=== PATIENT | male | born 1975 | race Asian ===

== ENCOUNTER 2023-03-22 00:21 | Inpatient (IN) | payer OTHER ==
[2023-03-22] MEDS ORDERED: LABETALOL 5 MG/ML VIAL MDV IVP STA (00:58)
[2023-03-22] MEDS ORDERED: SODIUM CHLORIDE 0.9% 1,000 ML IV STA ×2 (00:58→03:00)
--- NOTE | 2023-03-22 00:59 | ED ---
SOB HPI - General Chief Complaint: Shortness of Breath Stated Complaint: SOB Time Seen by Provider: 03/22/23 00:35 Source: patient, EMS, RN notes reviewed, old records reviewed Mode of arrival: EMS Limitations: no limitations - History of Present Illness Initial Comments: This is a 47-year-old male who presents with history of smoking crack cocaine in presenting from [facility] for severe shortness of breath diffuse body edema leg edema significant shortness of breath severely elevated blood pressure severely elevated heart rate. Patient's main complaint is shortness of breath MD Complaint: shortness of breath, "asthma attack", anxiety -: days(s) Severity: severe Severity scale (1-10): 8 Consistency: constant Improves With: rest Worsens With: exertion Known History Of: asthma (Does have history of smoking), IVDU Context: anxiety, recent illness Associated Symptoms: cough, sputum production Treatments Prior to Arrival: none - Related Data Home Medications Medication Instructions Recorded Confirmed Albuterol Nebulized [Ventolin 2.5 mg INHALATION RT-Q6H PRN 03/22/23 03/22/23 Nebulized] Albuterol Sulfate [Albuterol 1 - 2 puff PO RT-Q4H PRN 03/22/23 03/22/23 Sulfate Hfa] Previous Rx's Medication Instructions Recorded Aspirin 81 mg PO DAILY #30 tab 03/28/23 Atorvastatin [Lipitor] 80 mg PO HS #30 tab 03/28/23 Furosemide [Lasix] 20 mg PO BID@0900,1600 #60 tab 03/28/23 Nitroglycerin Sl Tabs [Nitrostat] 0.4 mg SUBLINGUAL Q5M PRN #30 tab 03/28/23 Spironolactone [Aldactone] 25 mg PO DAILY #30 tab 03/28/23 carvediloL [Coreg] 25 mg PO BID #60 tablet 03/28/23 cloNIDine 0.1 MG/24HR PATCH 1 patch TRANSDERM Q7D #4 patch 03/28/23 [Catapres-TTS] lisinopriL [Zestril] 20 mg PO BID #60 tab 03/28/23 Allergies Allergy/AdvReac Type Severity Reaction Status Date / Time No Known Allergies Allergy Verified 03/22/23 07:51 Review of Systems ROS Statement: Those systems with pertinent positive or pertinent negative responses have been documented in the HPI. ROS Other: All systems not noted in ROS Statement are negative. Past Medical History Past Medical History: Hypertension History of Any Multi-Drug Resistant Organisms: None Reported Past Surgical History: No Surgical Hx Reported Past Psychological History: No Psychological Hx Reported Smoking Status: Current some day smoker Past Alcohol Use History: None Reported Past Drug Use History: IV Drug Use - Past Family History Mother Family Medical History: Diabetes Mellitus, Hypertension Father History Unknown: Yes General Exam Limitations: no limitations General appearance: alert, anxious, in distress Head exam: Present: atraumatic, normocephalic, normal inspection Eye exam: Present: normal appearance, PERRL, EOMI. Absent: scleral icterus, conjunctival injection, periorbital swelling ENT exam: Present: normal exam, mucous membranes moist Neck exam: Present: normal inspection. Absent: tenderness, meningismus, lymphadenopathy Respiratory exam: Present: respiratory distress, accessory muscle use, decreased breath sounds, prolonged expiratory. Absent: wheezes, rales, rhonchi, stridor Cardiovascular Exam: Present: normal rhythm, tachycardia, normal heart sounds. Absent: systolic murmur, diastolic murmur, rubs, gallop, clicks GI/Abdominal exam: Present: soft, normal bowel sounds. Absent: distended, tenderness, guarding, rebound, rigid Extremities exam: Present: normal inspection, full ROM, normal capillary refill. Absent: tenderness, pedal edema, joint swelling, calf tenderness Back exam: Present: normal inspection Neurological exam: Present: alert, oriented X3, CN II-XII intact Psychiatric exam: Present: normal affect, normal mood Skin exam: Present: warm, dry, intact, normal color. Absent: rash Course Vital Signs 03/22/23 03/22/23 03/22/23 00:24 00:57 00:59 Temperature 98.7 F Pulse Rate 115 H 108 H Respiratory 28 H 18 Rate Blood Pressure 186/156 186/137 O2 Sat by Pulse 96 88 L 98 Oximetry Fraction of Inspired Oxygen (FIO2) 03/22/23 03/22/23 03/22/23 01:50 02:05 04:44 Temperature Pulse Rate 84 86 Respiratory 16 26 H Rate Blood Pressure 170/121 158/114 O2 Sat by Pulse 99 99 Oximetry Fraction of Inspired Oxygen (FIO2) 03/22/23 03/22/23 03/22/23 04:56 05:34 06:35 Temperature Pulse Rate 87 94 Respiratory 18 20 Rate Blood Pressure 155/113 O2 Sat by Pulse 97 93 L Oximetry Fraction of Inspired Oxygen (FIO2) 03/22/23 03/22/23 03/22/23 06:58 07:15 07:30 Temperature 97.6 F Pulse Rate 91 93 Respiratory 16 20 Rate Blood Pressure 148/113 115/90 O2 Sat by Pulse 94 L 100 Oximetry Fraction of 50 Inspired Oxygen (FIO2) 03/22/23 03/22/23 03/22/23 07:45 08:45 10:00 Temperature Pulse Rate 90 92 Respiratory 24 22 Rate Blood Pressure 145/109 150/123 O2 Sat by Pulse 96 94 L 99 Oximetry Fraction of Inspired Oxygen (FIO2) 03/22/23 03/22/23 12:06 12:14 Temperature 98.5 F 98.2 F Pulse Rate 89 99 Respiratory 22 18 Rate Blood Pressure 150/115 154/115 O2 Sat by Pulse 99 95 Oximetry Fraction of Inspired Oxygen (FIO2) - Reevaluation(s) Reevaluation #1: 03/22/23 04:44 Medical records are reviewed Reevaluation #2: 03/22/23 04:44 Patient improvement with blood pressure control and symptomatic therapy Reevaluation #3: 03/22/23 04:45 Patient informed of results and questions answered Reevaluation #4: 03/22/23 04:45 Was pt. sent in by a medical professional or institution (, PA, BUSINESS TRANSFORMATION ANALYST, urgent care, hospital, or [facility]...) When possible be specific @ -no Did you speak to anyone other than the patient for history (EMS, parent, family, police, friend...)? What history was obtained from this source @ -no Did you review nursing and triage notes (agree or disagree)? Why? @ -agree Are old charts reviewed (outside hosp., previous admission, EMS record, old EKG, old radiological studies, urgent care reports/EKG's, [facility] records)? Report findings @ -yes Differential Diagnosis (chest pain, altered mental status, abdominal pain women, abdominal pain men, vaginal bleeding, weakness, fever, dyspnea, syncope, headache, dizziness, GI bleed, back pain, seizure, CVA, palpatations, mental health, musculoskeletal)? @ -prior EKG interpreted by me (3pts min.). @ -yes X-rays interpreted by me (1pt min.). @ -yes acute pulmonary edema CT interpreted by me (1pt min.). @ -Yes acute pulmonary edema and anasarca U/S interpreted by me (1pt. min.). @ -no What testing was considered but not performed or refused? (CT, X-rays, U/S, labs)? Why? @ -none What meds were considered but not given or refused? Why? @ -none Did you discuss the management of the patient with other professionals (professionals i.e. , PA, BUSINESS TRANSFORMATION ANALYST, lab, RT, psych nurse, psychosocial rehabilitation counselor, manager hris, teacher, medical corps officer, leather case finisher)? Give summary @ -no Was smoking cessation discussed for >3mins.? @ -no Was critical care preformed (if so, how long)? @ -yes31 Were there social determinants of health that impacted care today? How? (Homelessness, low income, unemployed, alcoholism, drug addiction, transportation, low edu. Level, literacy, decrease access to med. care, detention, rehab)? @ -none Was there de-escalation of care discussed even if they declined (Discuss DNR or withdrawal of care, Hospice)? DNR status @ -no What co-morbidities impacted this encounter? (DM, HTN, Smoking, COPD, CAD, Cancer, CVA, ARF, Chemo, Hep., AIDS, mental health diagnosis, sleep apnea, morbid obesity)? @ -none Was patient admitted / discharged? Hospital course, mention meds given and route, prescriptions, significant lab abnormalities, going to OR and other pertinent info. @ - 47 male to the emergency room in today for evaluation with history of smoking crack cocaine coming in for evaluation severely elevated blood pressure severely elevated heart rate with shortness of breath and hypoxia. Patient has diffuse anasarca with suggestions of CHF ER noncardiogenic versus heart failure and pulmonary edema, patient does have respiratory failure on BiPAP Admitted Undiagnosed new problem with uncertain prognosis? @ -no Drug Therapy requiring intensive monitoring for toxicity (Heparin, Nitro, Insulin, Cardizem)? @ -no Were any procedures done? @ -no Diagnosis/symptom? @ -CHF, COPD, pulmonary edema, drug abuse, respiratory failure Acute, or Chronic, or Acute on Chronic? @ -Acute Uncomplicated (without systemic symptoms) or Complicated (systemic symptoms)? @ -Complicated Side effects of treatment? @ -no Exacerbation, Progression, or Severe Exacerbation? @ -exacerbation Poses a threat to life or bodily function? How? (Chest pain, [place], [place], pneumonia, PE, COPD, DKA, ARF, appy, cholecystitis, CVA, Diverticulitis, Homicidal, Suicidal, threat to staff... and all critical care pts) @ -yes with respiratory insufficiency Reevaluation #5: 03/22/23 04:45 Differential Dyspnea: Coronary syndrome, arrhythmia, tamponade, asthma, COPD, pulmonary embolism, pneumonia, pneumothorax, pulmonary effusion, anaphylaxis, diabetic ketoacidosis, flailed chest, pulmonary contusion, diaphragmatic rupture, anemia, neuromuscular, this is not meant to be an all-inclusive list. - Consultations Consultation #1: Pao who agrees to admit this patient Medical Decision Making - Medical Decision Making 47 male to the emergency room in today for evaluation with history of smoking crack cocaine coming in for evaluation severely elevated blood pressure severely elevated heart rate with shortness of breath and hypoxia. Patient has diffuse anasarca with suggestions of CHF ER noncardiogenic versus heart failure and pulmonary edema, patient does have respiratory failure on BiPAP - Lab Data Result diagrams: 03/29/23 07:25 03/29/23 07:25 Lab Results 03/22/23 03/22/23 03/22/23 Range/Units 01:03 01:03 01:03 WBC 10.5 (3.8-10.6) k/uL RBC 5.27 (4.30-5.90) m/uL Hgb 15.5 (13.0-17.5) gm/dL Hct 48.0 (39.0-53.0) % MCV 91.1 (80.0-100.0) fL MCH 29.4 (25.0-35.0) pg MCHC 32.2 (31.0-37.0) g/dL RDW 14.9 (11.5-15.5) % Plt Count (150-450) k/uL MPV 12.4 Neutrophils % 68 % Lymphocytes % 21 % Monocytes % 7 % Eosinophils % 1 % Basophils % 0 % Neutrophils # 7.1 (1.3-7.7) k/uL Lymphocytes # 2.2 (1.0-4.8) k/uL Monocytes # 0.7 (0-1.0) k/uL Eosinophils # 0.1 (0-0.7) k/uL Basophils # 0.0 (0-0.2) k/uL Manual Slide Review Performed Hypochromasia Slight ESR (0-15) mm/Hr PT 11.2 (10.0-12.5) sec INR 1.0 (<1.2) APTT 24.7 (22.0-30.0) sec D-Dimer 1.15 H (<0.60) mg/L FEU Sodium 133 L (137-145) mmol/L Potassium 3.7 (3.5-5.1) mmol/L Chloride 102 (98-107) mmol/L Carbon Dioxide 21 L (22-30) mmol/L Anion Gap 10 mmol/L BUN 22 H (9-20) mg/dL Creatinine 1.08 (0.66-1.25) mg/dL Est GFR (CKD-EPI)AfAm >90 (>60 ml/min/1.73 sqM) Est GFR (CKD-EPI)NonAf 80 (>60 ml/min/1.73 sqM) Glucose 107 H (74-99) mg/dL Plasma Lactic Acid Bharath (0.7-2.0) mmol/L Calcium 8.2 L (8.4-10.2) mg/dL Phosphorus 4.0 (2.5-4.5) mg/dL Magnesium 2.0 (1.6-2.3) mg/dL Total Bilirubin 0.8 (0.2-1.3) mg/dL AST 89 H (17-59) U/L ALT 173 H (4-49) U/L Alkaline Phosphatase 380 H (38-126) U/L Troponin I (0.000-0.034) ng/mL C-Reactive Protein (<1.0) mg/dL NT-Pro-B Natriuret Pep 08884 pg/mL Total Protein 6.5 (6.3-8.2) g/dL Albumin 3.0 L (3.5-5.0) g/dL 03/22/23 03/22/23 03/22/23 Range/Units 01:03 01:03 05:31 WBC (3.8-10.6) k/uL RBC (4.30-5.90) m/uL Hgb (13.0-17.5) gm/dL Hct (39.0-53.0) % MCV (80.0-100.0) fL MCH (25.0-35.0) pg MCHC (31.0-37.0) g/dL RDW (11.5-15.5) % Plt Count (150-450) k/uL MPV Neutrophils % % Lymphocytes % % Monocytes % % Eosinophils % % Basophils % % Neutrophils # (1.3-7.7) k/uL Lymphocytes # (1.0-4.8) k/uL Monocytes # (0-1.0) k/uL Eosinophils # (0-0.7) k/uL Basophils # (0-0.2) k/uL Manual Slide Review Hypochromasia ESR 54 H (0-15) mm/Hr PT (10.0-12.5) sec INR (<1.2) APTT (22.0-30.0) sec D-Dimer (<0.60) mg/L FEU Sodium (137-145) mmol/L Potassium (3.5-5.1) mmol/L Chloride (98-107) mmol/L Carbon Dioxide (22-30) mmol/L Anion Gap mmol/L BUN (9-20) mg/dL Creatinine (0.66-1.25) mg/dL Est GFR (CKD-EPI)AfAm (>60 ml/min/1.73 sqM) Est GFR (CKD-EPI)NonAf (>60 ml/min/1.73 sqM) Glucose (74-99) mg/dL Plasma Lactic Acid Bharath 1.3 (0.7-2.0) mmol/L Calcium (8.4-10.2) mg/dL Phosphorus (2.5-4.5) mg/dL Magnesium (1.6-2.3) mg/dL Total Bilirubin (0.2-1.3) mg/dL AST (17-59) U/L ALT (4-49) U/L Alkaline Phosphatase (38-126) U/L Troponin I 0.103 H* (0.000-0.034) ng/mL C-Reactive Protein (<1.0) mg/dL NT-Pro-B Natriuret Pep pg/mL Total Protein (6.3-8.2) g/dL Albumin (3.5-5.0) g/dL 03/22/23 03/22/23 Range/Units 05:31 05:31 WBC (3.8-10.6) k/uL RBC (4.30-5.90) m/uL Hgb (13.0-17.5) gm/dL Hct (39.0-53.0) % MCV (80.0-100.0) fL MCH (25.0-35.0) pg MCHC (31.0-37.0) g/dL RDW (11.5-15.5) % Plt Count (150-450) k/uL MPV Neutrophils % % Lymphocytes % % Monocytes % % Eosinophils % % Basophils % % Neutrophils # (1.3-7.7) k/uL Lymphocytes # (1.0-4.8) k/uL Monocytes # (0-1.0) k/uL Eosinophils # (0-0.7) k/uL Basophils # (0-0.2) k/uL Manual Slide Review Hypochromasia ESR (0-15) mm/Hr PT (10.0-12.5) sec INR (<1.2) APTT (22.0-30.0) sec D-Dimer (<0.60) mg/L FEU Sodium (137-145) mmol/L Potassium (3.5-5.1) mmol/L Chloride (98-107) mmol/L Carbon Dioxide (22-30) mmol/L Anion Gap mmol/L BUN (9-20) mg/dL Creatinine (0.66-1.25) mg/dL Est GFR (CKD-EPI)AfAm (>60 ml/min/1.73 sqM) Est GFR (CKD-EPI)NonAf (>60 ml/min/1.73 sqM) Glucose (74-99) mg/dL Plasma Lactic Acid Bharath (0.7-2.0) mmol/L Calcium (8.4-10.2) mg/dL Phosphorus (2.5-4.5) mg/dL Magnesium (1.6-2.3) mg/dL Total Bilirubin (0.2-1.3) mg/dL AST (17-59) U/L ALT (4-49) U/L Alkaline Phosphatase (38-126) U/L Troponin I 0.102 H* (0.000-0.034) ng/mL C-Reactive Protein 1.6 H (<1.0) mg/dL NT-Pro-B Natriuret Pep pg/mL Total Protein (6.3-8.2) g/dL Albumin (3.5-5.0) g/dL - EKG Data -: EKG Interpreted by Me (EKG is sinus tachycardia 69194 QRS 88 QTc 429) - Radiology Data Radiology results: report reviewed (X-rays positive for pulmonary edema, CT angios chest is negative for PE but does have pulmonary edema and anasarca), image reviewed Critical Care Time Critical Care Time: Yes Total Critical Care Time: 31 Disposition Clinical Impression: Acute pulmonary edema, Congestive heart failure, Asthma with acute exacerbation, Hypoxia, Noncardiogenic pulmonary edema Narrative: Smoking Crack Disposition: ADMITTED IP TO THIS HOSP Condition: Stable Is patient prescribed a controlled substance at d/c from ED?: No Time of Disposition: 04:45
[2023-03-22 01:23] LABS: Basophils % (A) 0 %; Eosinophils # (A) 0.1 k/uL (0-0.7); Eosinophils % (A) 1 %; HGB 15.5 gm/dL (13.0-17.5); Hypochromasia Slight; Lymphocytes # (A) 2.2 k/uL (1.0-4.8); Lymphocytes % (A) 21 %; MCH 29.4 pg (25.0-35.0); MCHC 32.2 g/dL (31.0-37.0); MCV 91.1 fL (80.0-100.0); Mean Platelet Volume 12.4; Monocytes # (A) 0.7 k/uL (0-1.0); Monocytes % (A) 7 %; Neutrophils # (A) 7.1 k/uL (1.3-7.7); Neutrophils % (A) 68 %; RBC 5.27 m/uL (4.30-5.90); RDW 14.9 % (11.5-15.5); WBC 10.5 k/uL (3.8-10.6)
[2023-03-22 01:36] LABS: ALT 173 U/L (4-49); AST 89 U/L (17-59); African American GFR (CKD) >90 (>60 ml/min/1.73 sqM); Alkaline Phosphatase 380 U/L (38-126); Anion Gap 10 mmol/L; Blood Urea Nitrogen 22 mg/dL (9-20); Calcium 8.2 mg/dL (8.4-10.2); Carbon Dioxide 21 mmol/L (22-30); Chloride 102 mmol/L (98-107); Glucose 107 mg/dL (74-99); Non-African American GFR(CKD) 80 (>60 ml/min/1.73 sqM); Potassium 3.7 mmol/L (3.5-5.1); Sodium 133 mmol/L (137-145); Total Bilirubin 0.8 mg/dL (0.2-1.3); Total Protein 6.5 g/dL (6.3-8.2)
[2023-03-22 01:44] LABS: NT-Pro-B-Type Natriuretic Pept 15200 pg/mL
[2023-03-22 02:49] LABS: Partial Thromboplastin Time 24.7 sec (22.0-30.0); Prothrombin Time 11.2 sec (10.0-12.5)
[2023-03-22] MEDS ORDERED: LORazepam 2 MG/ML INJ IV PRN (03:00)
[2023-03-22] MEDS ORDERED: MORPHINE SULFATE 4 MG/ML SYRINGE IVP PRN (03:00)
[2023-03-22] MEDS ORDERED: MORPHINE SULFATE 4 MG/ML SYRINGE IVP STA (03:00)
[2023-03-22] MEDS ORDERED: LORazepam 2 MG/ML INJ IV STA (03:00)
--- NOTE | 2023-03-22 03:25 | XR ---
EXAM: XR Chest, 1 View CLINICAL HISTORY: ITS.REASON XR Reason: sob TECHNIQUE: Frontal view of the chest. COMPARISON: No relevant prior studies available. FINDINGS: Lungs: Patchy subsegmental basilar opacities. Prominent ill-defined bronchovascular markings. Pleural space: Blunting of bilateral costophrenic sulci. No pneumothorax. Heart: Unremarkable. No cardiomegaly. Mediastinum: Prominent cardiomediastinal silhouette. Bones/joints: Unremarkable. No acute fracture. IMPRESSION: Findings likely represent mild congestive edema, and/or unusual pneumonia
--- NOTE | 2023-03-22 04:20 | CT ---
EXAM: CT Angiography Chest With Intravenous Contrast CLINICAL HISTORY: ITS.REASON CT Reason: pain TECHNIQUE: Axial computed tomographic angiography images of the chest with intravenous contrast. CTDI is 13.35 mGy and DLP is 572.35 mGy-cm. This CT exam was performed using one or more of the following dose reduction techniques: automated exposure control, adjustment of the mA and/or kV according to patient size, and/or use of iterative reconstruction technique. MIP reconstructed images were created and reviewed. COMPARISON: No relevant prior studies available. FINDINGS: Pulmonary arteries: Unremarkable. No significant pulmonary arterial filling defects seen. Aorta: 40 mm fusiform ascending thoracic aortic ectasia/aneurysm. Atherosclerotic vascular calcifications. Aortic valvular calcification. Lungs: Partially confluent groundglass opacities. Patchy subsegmental right basal opacities. Pleural space: Small left and moderate right pleural effusion. No pneumothorax. Heart: Possible mild left ventricular hypertrophy. Significant coronary artery atherosclerotic calcifications. No cardiomegaly. No significant pericardial effusion. No evidence of RV dysfunction. Bones/joints: T12 superior endplate minimal compression fracture and Schmorl's node, with sclerotic margins, likely chronic. No dislocation. Soft tissues: Diffuse soft tissue edema. Mesenteric edema. Lymph nodes: Unremarkable. No enlarged lymph nodes. Gallbladder and bile ducts: Mild pericholecystic edema. IMPRESSION: 1. No acute pulmonary embolus seen. 2. Probable pulmonary edema and pleural effusion with basilar atelectasis, and/or pneumonia with parapneumonic effusion. 3. Probable mild anasarca. 4. Findings otherwise as above
[2023-03-22] MEDS ORDERED: IPRATROPIUM-ALBUTEROL 3 ML NEB INHALATION STA (04:26)
--- NOTE | 2023-03-22 04:29 | CT ---
EXAM: CT Abdomen and Pelvis With Intravenous Contrast CLINICAL HISTORY: ITS.REASON CT Reason: pain TECHNIQUE: Axial computed tomography images of the abdomen and pelvis with intravenous contrast. CTDI is 15 13.35 mGy and DLP is 572.35 mGy-cm. This CT exam was performed using one or more of the following dose reduction techniques: automated exposure control, adjustment of the mA and/or kV according to patient size, and/or use of iterative reconstruction technique. COMPARISON: No relevant prior studies available. FINDINGS: Lung bases: Please see the concurrent chest CT dictation. ABDOMEN: Liver: Unremarkable. No mass. Gallbladder and bile ducts: Partially contracted gallbladder with mild pericholecystic edema. No ductal dilation. Pancreas: Unremarkable. No mass. No ductal dilation. Spleen: Unremarkable. No splenomegaly. Adrenals: Unremarkable. No mass. Kidneys and ureters: Left renal cortical hypodensities, likely benign cyst, no further imaging of the cyst recommended. No hydronephrosis. Stomach and bowel: Moderate amount of stool in the colon. No obstruction. No mucosal thickening. PELVIS: Appendix: No findings to suggest acute appendicitis. Bladder: Unremarkable. No mass. Reproductive: Unremarkable as visualized. ABDOMEN and PELVIS: Intraperitoneal space: Unremarkable. No free air. No significant fluid collection. Bones/joints: No acute fracture. No dislocation. Soft tissues: Periportal edema, possibly related to diffuse soft tissue edema and hydration. Mild soft tissue edema. Vasculature: Accessory right renal artery noted. Moderate atherosclerotic calcifications. No abdominal aortic aneurysm. Lymph nodes: Unremarkable. No enlarged lymph nodes. IMPRESSION: 1. Probable anasarca changes. 2. Periportal edema likely related to diffuse body edema and hydration. 3. Pericholecystic edema, likely related to diffuse body edema, however if cholecystitis is of concern, hepatobiliary nuclear medicine examination recommended.
[2023-03-22] MEDS ORDERED: FUROSEMIDE 10 MG/ML 10 ML VIAL IV STA ×2 (04:42→08:13)
[2023-03-22] MEDS ORDERED: cefTRIAXone IN SWFI 1,000 MG/10 ML SYRINGE IVP STA (04:43)
[2023-03-22] MEDS ORDERED: AZITHROMYCIN 500 MG in SODIUM CHLORIDE 0.9% 250 ML IVPB STA (04:43)
[2023-03-22] MEDS ORDERED: NALOXONE 0.4 MG/ML 1 ML VIAL IV PRN (06:24)
[2023-03-22] MEDS ORDERED: ONDANSETRON 4 MG/2 ML VIAL IVP PRN (06:24)
[2023-03-22] MEDS ORDERED: lisinopriL 10 MG TAB PO SCH (09:00)
[2023-03-22 09:36] LABS: ABG Base Excess -4.9 mmol/L; ABG HCO3 20 mmol/L (21-25); ABG Oxygen Saturation 80.7 % (94-97); ABG PCO2 32 mmHg (35-45); ABG PH 7.41 (7.35-7.45); ABG TCO2 21 mmol/L (19-24); Allen Test Performed? Yes
[2023-03-22] MEDS ORDERED: cloNIDine 0.1 MG/24HR PATCH TRANSDERM SCH (09:45)
[2023-03-22 09:47] LABS: ABG PO2 47 mmHg (83-108)
[2023-03-22] MEDS: carvediloL 6.25 MG TAB PO SCH ×2 (10:18→17:40)
--- NOTE | 2023-03-22 10:51 | CA ---
Transthoracic Echo Report Name: Trevon Lloyd Age: 47 Gender: M : 1975 Exam Date: 03/22/2023 09:45 Exam Location: [facility] Ht (in): 70 Wt (lb): 174 Ordering Physician: Kristen Watkins Attending/Referring Phys: [place] Abdullahi Brooke Procedure CPT: Indications: CHF, tachypnea, hypoxemia Cardiac Hx: Technical Quality: Good Contrast 1: Total Dose (mL): Contrast 2: Total Dose (mL): MEASUREMENTS (Male / Female) Normal Values 2D ECHO LV Diastolic Diameter PLAX 4.8 cm 4.2 - 5.9 / 3.9 - 5.3 cm LV Systolic Diameter PLAX 4.5 cm IVS Diastolic Thickness 2.0 cm 0.6 - 1.0 / 0.6 - 0.9 cm LVPW Diastolic Thickness 1.5 cm 0.6 - 1.0 / 0.6 - 0.9 cm LV Relative Wall Thickness 0.7 RV Internal Dim ED PLAX 4.5 cm LVOT Diameter 2.1 cm Aortic Root Diameter 3.6 cm LA Systolic Diameter LX 3.5 cm 3.0 - 4.0 / 2.7 - 3.8 cm LV Diastolic Volume MOD BP 105.1 cm??? 67 - 155 / 56 - 104 cm??? LV Systolic Volume MOD BP 66.7 cm??? - 58 / 19 - 49 cm??? LV Ejection Fraction MOD BP 36.5 % >= 55 % LV Cardiac Index MOD BP 1800.8 cm???/min???m??? LV Diastolic Volume MOD 4C 115.0 cm??? LV Systolic Volume MOD 4C 94.1 cm??? LV Ejection Fraction MOD 4C 18.2 % LV Cardiac Index MOD 4C 979.7 cm???/min???m??? LV Diastolic Length 4C 9.7 cm LV Systolic Length 4C 9.3 cm LV Diastolic Volume MOD 2C 90.2 cm??? LV Systolic Volume MOD 2C 53.8 cm??? LV Ejection Fraction MOD 2C 40.4 % LV Cardiac Index MOD 2C 1708.8 cm???/min???m??? LV Diastolic Length 2C 9.2 cm LV Systolic Length 2C 8.7 cm LA Volume 82.7 cm??? 18 - 58 / 22 - 52 cm??? LA Volume Index 41.7 cm???/m??? 16 - 28 cm???/m??? Ascending Aorta Diameter 3.4 cm DOPPLER AV Peak Velocity 80.8 cm/s AV Peak Gradient 2.6 mmHg AV Mean Velocity 59.0 cm/s AV Mean Gradient 1.6 mmHg AV Velocity Time Integral 13.5 cm LVOT Peak Velocity 34.9 cm/s LVOT Peak Gradient 0.5 mmHg LVOT Velocity Time Integral 4.8 cm LVOT Stroke Volume 16.7 cm??? LVOT Stroke Volume Index 8.5 ml/m??? LVOT Cardiac Index 785.7 cm???/min???m??? AV Area Cont Eq vti 1.2 cm??? AV Area Cont Eq pk 1.5 cm??? MR Peak Velocity 343.8 cm/s MR Peak Gradient 47.3 mmHg Mitral E Point Velocity 64.4 cm/s Mitral A Point Velocity 37.9 cm/s Mitral E to A Ratio 1.7 MV Deceleration Time 95.9 ms TR Peak Velocity 279.7 cm/s TR Peak Gradient 31.3 mmHg Right Ventricular Systolic Press 41.3 mmHg PV Peak Velocity 55.6 cm/s PV Peak Gradient 1.2 mmHg FINDINGS Left Ventricle Normal LV size. Mild to moderate concentric LVH. Left ventricular ejection fraction is estimated at 15-20 %. Right Ventricle Moderate right ventricular dilatation. RVSP=41mmHg. Right Atrium Mild to moderate right atrial dilatation. Left Atrium Severely increased left atrial volume. Mildly increased left atrial area. LA volume index= 42ml/m2 Mitral Valve Structurally normal mitral valve. Moderate MR. Aortic Valve Trileaflet aortic valve. Mild to moderate AV calcification. Trace AI. Tricuspid Valve Structurally normal tricuspid valve. Moderate to severe TR. Pulmonic Valve Pulmonic valve not well visualized. No pulmonic regurgitation. Pericardium Normal pericardium. Aorta Normal size aortic root and proximal ascending aorta. CONCLUSIONS LV size is at upper limits of normal global decrease in contractility estimated ejection fraction 20%. Enlarged right ventricle. Left atrium is significantly enlarged right atrium is moderately enlarged. Moderate mitral and moderate to severe tricuspid regurgitation aortic valve sclerosis without significant restriction no pericardial effusion Previewed by: Dr. Chase Martinez MD (Electronically Signed) Final Date: 22 March 2023 10:50
[2023-03-22 11:10] LABS: Amphetamine Screen,Urine Not Detected (NotDetected); Barbiturate Screen,Urine Not Detected (NotDetected); Benzodiazepines Screen,Urine Not Detected (NotDetected); Cocaine Screen,Urine Not Detected (NotDetected); Methadone Screen, Urine Not Detected (NotDetected); Opiate Screen,Urine Detected (NotDetected); Oxycodone Screen, Urine Not Detected (NotDetected); Phencyclidine Screen,Urine Not Detected (NotDetected); Tricyclic Antidepressant,Urine Not Detected (NotDetected); Urn Cannabinoid Scrn Not Detected (NotDetected)
--- NOTE | 2023-03-22 12:41 | P.CNPUL ---
History of Present Illness Consult date: 03/22/23 Requesting physician: Lai Avina Reason for consult: dyspnea, pleural effusion, abnormal CXR/CT Chief complaint: Shortness of breath History of present illness: This is a 47-year-old white male, history of cocaine abuse, patient smokes normally crack cocaine, patient was sent from [place] for severe shortness of breath and diffuse swelling and edema/anasarca. According to the patient is not aware of any previous history of congestive heart failure, but apparently the patient had history of hypertension, and poorly controlled blood pressure. Patient had cough, shortness of breath, no wheezing, no fever, no chills, no hemoptysis, and no chest pain. His main chief complaint was mostly shortness of breath which was relatively subacute over the last 1 week. Worse in the last 24 hours. Chest x-ray in the ER showed evidence of pulmonary edema and pleural effusions right more so than left, CT angiogram showed no evidence of pulmonary embolism, it did show pleural effusions and atelectasis, it also showed anasarca. Echocardiogram showed evidence of severe LV dysfunction and ejection fraction 15-20%. Moderate right ventricular dilatation with RVSP of 41, moderate right atrial dilatation, moderate mitral regurgitation, and moderate to severe tricuspid regurgitation. During my evaluation, patient was on 2 L nasal cannula, ABG showed a pO2 of 47 pH of 7.41 and pCO2 of 32. As advised to be placed on a higher FiO2/6 L, recommended Lasix which was already given, and recommended ultrasound of the chest, and changed admission from admission to the cardiac floor to admission to ICU. Her drug screen on the patient was positive for opiates. Otherwise negative drug screen. BNP level was 15,200, troponin 0.117 Review of Systems Constitutional: No fever no chills no weight loss HEENT: Negative Pulmonary: As noted in HPI mostly shortness of breath and cough Cardiac: As noted in HPI shortness of breath, and significant swelling and fluid retention in his lower extremities. GI: Negative Genitourinary: Negative Musculoskeletal: Negative Hematologic: Negative Psychiatric: Negative except for history of substance abuse Skin: Negative Endocrine: Negative Neurologic: Past Medical History Past Medical History: Hypertension History of Any Multi-Drug Resistant Organisms: None Reported Past Surgical History: No Surgical Hx Reported Past Psychological History: No Psychological Hx Reported Smoking Status: Current some day smoker Past Alcohol Use History: None Reported Past Drug Use History: IV Drug Use Medications and Allergies Home Medications Medication Instructions Recorded Confirmed Type Albuterol Nebulized [Ventolin 2.5 mg INHALATION RT-Q6H PRN 03/22/23 03/22/23 History Nebulized] Albuterol Sulfate [Albuterol 1 - 2 puff PO RT-Q4H PRN 03/22/23 03/22/23 History Sulfate Hfa] Allergies Allergy/AdvReac Type Severity Reaction Status Date / Time No Known Allergies Allergy Verified 03/22/23 07:51 Physical Exam Vitals: Vital Signs Temp Pulse Resp BP Pulse Ox FiO2 03/22/23 12:14 98.2 F 99 18 154/115 95 03/22/23 10:00 92 22 150/123 99 03/22/23 08:45 90 24 145/109 94 L 03/22/23 07:45 96 03/22/23 07:30 50 03/22/23 07:15 97.6 F 93 20 115/90 100 03/22/23 06:58 91 16 148/113 94 L 03/22/23 05:34 94 20 155/113 97 03/22/23 04:56 87 18 03/22/23 04:44 86 26 H 03/22/23 02:05 84 16 158/114 99 03/22/23 01:50 170/121 99 03/22/23 00:59 98 03/22/23 00:57 108 H 18 186/137 88 L 03/22/23 00:24 98.7 F 115 H 28 H 186/156 96 Intake and Output 03/21/23 03/22/23 03/22/23 22:59 06:59 14:59 Output Total 350 Balance -350 Output: Urine 350 Uretheral (Alfaro) 350 Other: Weight 78.925 kg Physical Exam: Revealed 47-year-old white male extremely short of breath with any movement or even verbalizing one sentence. Head: Atraumatic, normocephalic. HEENT:[Neck is supple.] [No neck masses.] [No thyromegaly.] [Extended neck veins were noted, positive JVD Chest: Crackles and diminished breath sounds at the bases. No wheezing. Cardiac Exam: Normal S1 and S2, 2/6 systolic murmur thought the precordium Abdomen: [Soft, nontender, no megaly, no rebound, no guarding, normal bowel sounds. Mild ascites.] Extremities: [No clubbing, 1+ bipedal edema, no cyanosis.] Feet and hands felt cold, and a bit mottled diminished distal pulses. Neurological Exam: [Alert and oriented 3 in no gross focal neurologic deficit Psychiatric: Normal mood affect and normal mental status examination Skin: No rashes. Results - Laboratory Findings CBC and BMP: 03/22/23 01:03 03/22/23 01:03 ABG ABG pH 7.41 (7.35-7.45) 03/22/23 09:32 ABG pCO2 32 mmHg (35-45) L 03/22/23 09:32 ABG pO2 47 mmHg (83-108) L* 03/22/23 09:32 ABG O2 Saturation 80.7 % (94-97) L 03/22/23 09:32 PT/INR, D-dimer PT 11.2 sec (10.0-12.5) 03/22/23 01:03 INR 1.0 (<1.2) 03/22/23 01:03 D-Dimer 1.15 mg/L FEU (<0.60) H 03/22/23 01:03 Abnormal lab findings: Abnormal Labs 03/22/23 03/22/23 03/22/23 01:03 01:03 01:03 ESR D-Dimer 1.15 H ABG pCO2 ABG pO2 ABG HCO3 ABG O2 Saturation Sodium 133 L Carbon Dioxide 21 L BUN 22 H Glucose 107 H Calcium 8.2 L AST 89 H ALT 173 H Alkaline Phosphatase 380 H Troponin I 0.103 H* C-Reactive Protein Albumin 3.0 L Urine Opiates Screen 03/22/23 03/22/23 03/22/23 05:31 05:31 05:31 ESR 54 H D-Dimer ABG pCO2 ABG pO2 ABG HCO3 ABG O2 Saturation Sodium Carbon Dioxide BUN Glucose Calcium AST ALT Alkaline Phosphatase Troponin I 0.102 H* C-Reactive Protein 1.6 H Albumin Urine Opiates Screen 03/22/23 03/22/23 03/22/23 08:26 09:32 10:00 ESR D-Dimer ABG pCO2 32 L ABG pO2 47 L* ABG HCO3 20 L ABG O2 Saturation 80.7 L Sodium Carbon Dioxide BUN Glucose Calcium AST ALT Alkaline Phosphatase Troponin I 0.117 H* C-Reactive Protein Albumin Urine Opiates Screen Detected H - Diagnostic Findings Chest x-ray: image reviewed (As noted in HPI) CT scan - chest: image reviewed (As noted in HPI) Assessment and Plan Assessment: Impression: Acute hypoxic respiratory failure Acute systolic congestive heart failure Valvular heart disease including mitral valve regurgitation and tricuspid valve regurgitation Severe cardiomyopathy, needs further investigation probably related to substance abuse. History of benign essential hypertension Biventricular heart failure Chronic pulmonary hypertension secondary to severe LV dysfunction History of substance abuse/crack cocaine Recommendation: Transfer patient to ICU Continue oxygen and titrate accordingly Continue diuretics/Lasix Echocardiogram was reviewed Ultrasound of the chest was ordered and may consider a right-sided thoracentesis on this patient. Cardiology consultation for further investigation of his cardiomyopathy and LV dysfunction GI and DVT prophylaxis Close monitoring of electrolytes and renal profile Patient is critically ill. Prognosis is guarded. We will continue to follow Discussed his condition with cardiology on the case Time with Patient: Greater than 30
--- NOTE | 2023-03-22 13:16 | US ---
EXAMINATION TYPE: US chest DATE OF EXAM: 03/22/2023 COMPARISON: Same day CTA chest CLINICAL INDICATION: Male, 47 years old with history of Markings for thoracentesis by pulmonary staff ; SOB TECHNIQUE: Targeted ultrasound of the posterior lower bilateral hemithoraces EXAM MEASUREMENTS: Right Pleural Effusion pocket size: 13.0 cm Right skin surface to fluid distance: 3.0 cm Left Pleural Effusion pocket size: 1.7 cm Right side marked for possible thoracentesis outside the dept. Left side NOT marked for possible thoracentesis outside the dept. Pulmonologists are able to review the images in the patient?s EMR. Moderate size right pleural fluid collection or fusion and small size left pleural effusion are seen on images saved which correlate with CT exam earlier today IMPRESSIONS: As above.
--- NOTE | 2023-03-22 14:20 | P.HPIM ---
History of Present Illness H&P Date: 03/22/23 Chief Complaint: dyspnea 47 year old man with history of crack/cocaine abuse who was in [place] presented from their facility with anasarca and dyspnea. Pt is a poor historian due to work of breathing and withdrawal from crack/cocaine. From my understanding, patient has been having dyspnea for approximately 2-3 weeks, he noticed that 2-3 days ago he started to develop lower extremity edema and significant shortness of breath. Patient denies fevers, chills. Reports chest pain, dyspnea, cough. Denies abdominal pain. In the emergency room, patient was afebrile, 186/156, heart rate 115, 96% on room air. CBC is unremarkable. Basic metabolic panel showed hyponatremia to 103 3, CO2 of 21, BUN 22, creatinine 1.08. Liver function tests showed AST of 89, LDL 173, alkaline phosphatase of 380. BNP was 15,200, troponins 0.103 and troponin 0.102. CRP was 1.6. D-dimer is 1.15. Coags are otherwise unremarkable. Patient was admitted to the hospital with cardiology consult for further evaluation. Pulmonology was also consulted, evaluated patient in the emergency room and found the patient had a pH of 7.41, pCO2 of 32, pO2 47 and had increased work of breathing, therefore upgraded the patient to inpatient ICU status for heart failure. All Systems reviewed and pertinent positives and negatives noted in HPI, all other symptoms are negative Gen: in no apparent distress, resting comfortably in bed Eyes: PERRL, no scleral injection or icterus HENT: normocephalic, atraumatic, good hearing acuity, moist mucous membranes Neck: no tracheal deviation, full range of motion Resp: Increased work of breathing with accessory muscle use, posterior crackles CVS: good distal perfusion x 4, 2+ pitting edema, JVD is present to the edge of the earlobe GI: soft, NTTP, ND, no hepatosplenomegaly : no suprapubic tenderness, no CVAT, beckett catheter not present MSK: no clubbing, no cyanosis, no noted contractures of extremities Skin: no noted rashes, petechiae; temperature of skin is appropriate Neuro: moving all extremities without signs of weakness, CN II-XII intact Labs and imaging as above Assessment/plan: Acute hypoxemic respiratory failure Acute systolic heart failure, ejection fraction 15-20% -Admit patient to ICU, pulmonology consult -Discussed the case with cardiology, patient will be started on clonidine, hydralazine, Coreg, lisinopril -Echocardiogram is reviewed, ejection fraction 15-20%. -Lasix 40 mg IV twice a day -Strict ins and outs, daily weights Cocaine abuse -Clonidine patch -Symptomatically control with Zofran when necessary Patient is full code Past Medical History Past Medical History: Hypertension History of Any Multi-Drug Resistant Organisms: None Reported Past Surgical History: No Surgical Hx Reported Past Anesthesia/Blood Transfusion Reactions: No Reported Reaction Past Psychological History: No Psychological Hx Reported Smoking Status: Current some day smoker Past Alcohol Use History: None Reported Past Drug Use History: IV Drug Use - Past Family History Mother Family Medical History: Diabetes Mellitus Medications and Allergies Home Medications Medication Instructions Recorded Confirmed Type Albuterol Nebulized [Ventolin 2.5 mg INHALATION RT-Q6H PRN 03/22/23 03/22/23 History Nebulized] Albuterol Sulfate [Albuterol 1 - 2 puff PO RT-Q4H PRN 03/22/23 03/22/23 History Sulfate Hfa] Allergies Allergy/AdvReac Type Severity Reaction Status Date / Time No Known Allergies Allergy Verified 03/22/23 07:51 Physical Exam Osteopathic Statement: *. No significant issues noted on an osteopathic struc tural exam other than those noted in the History and Physical/Consult. Vitals: Vital Signs Temp Pulse Resp BP Pulse Ox FiO2 03/22/23 12:14 98.2 F 99 18 154/115 95 03/22/23 10:00 92 22 150/123 99 03/22/23 08:45 90 24 145/109 94 L 03/22/23 07:45 96 03/22/23 07:30 50 03/22/23 07:15 97.6 F 93 20 115/90 100 03/22/23 06:58 91 16 148/113 94 L 03/22/23 06:35 93 L 03/22/23 05:34 94 20 155/113 97 03/22/23 04:56 87 18 03/22/23 04:44 86 26 H 03/22/23 02:05 84 16 158/114 99 03/22/23 01:50 170/121 99 03/22/23 00:59 98 03/22/23 00:57 108 H 18 186/137 88 L 03/22/23 00:24 98.7 F 115 H 28 H 186/156 96 Intake and Output 03/21/23 03/22/23 03/22/23 22:59 06:59 14:59 Output Total 350 Balance -350 Output: Urine 350 Uretheral (Beckett) 350 Other: Weight 78.925 kg Results CBC & Chem 7: 03/22/23 01:03 03/22/23 01:03 Labs: Abnormal Lab Results - Last 24 Hours (Table) 03/22/23 03/22/23 03/22/23 Range/Units 01:03 01:03 01:03 ESR (0-15) mm/Hr D-Dimer 1.15 H (<0.60) mg/L FEU ABG pCO2 (35-45) mmHg ABG pO2 (83-108) mmHg ABG HCO3 (21-25) mmol/L ABG O2 Saturation (94-97) % Sodium 133 L (137-145) mmol/L Carbon Dioxide 21 L (22-30) mmol/L BUN 22 H (9-20) mg/dL Glucose 107 H (74-99) mg/dL Calcium 8.2 L (8.4-10.2) mg/dL AST 89 H (17-59) U/L ALT 173 H (4-49) U/L Alkaline Phosphatase 380 H (38-126) U/L Troponin I 0.103 H* (0.000-0.034) ng/mL C-Reactive Protein (<1.0) mg/dL Albumin 3.0 L (3.5-5.0) g/dL Urine Opiates Screen (NotDetected) 03/22/23 03/22/23 03/22/23 Range/Units 05:31 05:31 05:31 ESR 54 H (0-15) mm/Hr D-Dimer (<0.60) mg/L FEU ABG pCO2 (35-45) mmHg ABG pO2 (83-108) mmHg ABG HCO3 (21-25) mmol/L ABG O2 Saturation (94-97) % Sodium (137-145) mmol/L Carbon Dioxide (22-30) mmol/L BUN (9-20) mg/dL Glucose (74-99) mg/dL Calcium (8.4-10.2) mg/dL AST (17-59) U/L ALT (4-49) U/L Alkaline Phosphatase (38-126) U/L Troponin I 0.102 H* (0.000-0.034) ng/mL C-Reactive Protein 1.6 H (<1.0) mg/dL Albumin (3.5-5.0) g/dL Urine Opiates Screen (NotDetected) 03/22/23 03/22/23 03/22/23 Range/Units 08:26 09:32 10:00 ESR (0-15) mm/Hr D-Dimer (<0.60) mg/L FEU ABG pCO2 32 L (35-45) mmHg ABG pO2 47 L* (83-108) mmHg ABG HCO3 20 L (21-25) mmol/L ABG O2 Saturation 80.7 L (94-97) % Sodium (137-145) mmol/L Carbon Dioxide (22-30) mmol/L BUN (9-20) mg/dL Glucose (74-99) mg/dL Calcium (8.4-10.2) mg/dL AST (17-59) U/L ALT (4-49) U/L Alkaline Phosphatase (38-126) U/L Troponin I 0.117 H* (0.000-0.034) ng/mL C-Reactive Protein (<1.0) mg/dL Albumin (3.5-5.0) g/dL Urine Opiates Screen Detected H (NotDetected) Thrombosis Risk Factor Assmnt - Choose All That Apply Any of the Below Risk Factors Present?: Yes Each Factor Represents 1 point: Age 41-60 years, Heart failure (<1month), Swollen legs (current) Other Risk Factors: No Other congenital or acquired thrombophilia - If yes, enter type in comment: No Thrombosis Risk Factor Assessment Total Risk Factor Score: 3 Thrombosis Risk Factor Assessment Level: Moderate Risk
[2023-03-22 14:24] LABS: Glucose,Whole Blood 116 mg/dL (70-110)
--- NOTE | 2023-03-22 14:37 | P.CRDCN ---
History of Present Illness Consult date: 03/22/23 Consult reason: congestive heart failure History of present illness: History of present illness: This is a 47-year-old male with past medical history of crack cocaine use has been at [place] found to have elevated blood pressure of 200/120 was given Catapres without improvement and also complaining of shortness of breath with worsening dyspnea was sent into the hospital for further evaluation. Patient also presented with bilateral lower extremity edema, shortness of breath and continued to have elevated blood pressure readings. Patient denies having any chest pain. Initially 186/156. He is status post Lasix 60 mg IV 1, labetalol 20 mg 1, 2 L of IV fluid. Blood pressure is currently 145/109 with heart rate of 93, telemetry is sinus rhythm. EKG ST changes depression in V5 and V6 Chest x-ray: Mild congestive edema and/or unusual pneumonia. CTA of the chest reveals no pulmonary embolism. Probable pulmonary edema and pleural effusion with basilar atelectasis and/or pneumonia with. Pneumonia effusion. Probable mild anasarca. CT abdomen and pelvis revealed probable anasarca changes. P reported edema likely related to diffuse body edema and hydration.. Cholecystic edema related to diffuse body edema. Echocardiogram performed 03/22/2023 reveals EF of 20%. Moderate mitral and moderate to severe tricuspid regurgitation and aortic valve sclerosis without significant restriction. No pericardial effusion. CBC unremarkable. D-dimer 1.15. PH 7.51, pCO2 32, pO2 47, bicarb 20, total CO2 21, O2 situation 80, base excess -4.9. Sodium 133, potassium 3.7, BUN 22 creatinine 1.08. AST 89, ALT 173, alkaline phosphatase 380. Troponins 0.103, 0.102, 0.117. C-reactive protein 1.6. ProBNP 15,200. Opiates detected in ur ine drug screen Home cardiac medications: None Review Of Systems: At the time of my exam: CONSTITUTIONAL: Denies fever or chills. CARDIOVASCULAR: Denies chest pain, reports edema, reports shortness of breath, no orthopnea, PND or palpitations. RESPIRATORY: Denies cough. GASTROINTESTINAL: Denies abdominal pain, diarrhea, constipation, nausea or vomiting. MUSCULOSKELETAL: Denies myalgias. NEUROLOGIC: Denies numbness, tingling or weakness. ENDOCRINE: Denies fatigue, weight change, polydipsia or polyurina. GENITOURINARY: Denies burning, hematuria or urgency with micturation. HEMATOLOGIC: Denies history of anemia or bleeding. Physical examination: Gen: This is a 47-year-old male is seen and in no acute distress. Patient noted to be hyperventilating. VS: reviewed HEENT: Head is atraumatic, normocephalic. Pupils equal, round. Sclerae is anicteric. NECK: Supple. + JVD. LUNGS: Clear to auscultation. No wheezes or rhonchi. No intercostal retractions. HEART: Regular rate and rhythm. ABDOMEN: Soft No tenderness. EXTREMITIES: 1+ bilateral pedal edema. No calf tenderness. NEUROLOGICAL: Patient is awake, alert and oriented x3. Assessment: Acute hypoxic respiratory failure Acute systolic heart failure Severe cardiomyopathy most likely related to drug use Valvular heart disease with moderate mitral, moderate to severe tricuspid regurgitation and aortic valve sclerosis Hypertension Crack use Plan: Patient started on Coreg 6.25 mg twice daily, continue Catapres patch Start patient on 1 dose of IV Lasix 80 mg followed by Lasix 40 mg IV every 12 hours Monitor I&O, daily weights, electrolytes and renal function Further recommendations to follow based upon clinical course Thank you kindly for this consultation. Nurse practitioner note has been reviewed, I agree with documented findings and plan of care. Patient was seen and examined. Past Medical History Past Medical History: Hypertension History of Any Multi-Drug Resistant Organisms: None Reported Past Surgical History: No Surgical Hx Reported Past Anesthesia/Blood Transfusion Reactions: No Reported Reaction Past Psychological History: No Psychological Hx Reported Smoking Status: Current some day smoker Past Alcohol Use History: None Reported Past Drug Use History: IV Drug Use - Past Family History Mother Family Medical History: Diabetes Mellitus Medications and Allergies Home Medications Medication Instructions Recorded Confirmed Type Albuterol Nebulized [Ventolin 2.5 mg INHALATION RT-Q6H PRN 03/22/23 03/22/23 History Nebulized] Albuterol Sulfate [Albuterol 1 - 2 puff PO RT-Q4H PRN 03/22/23 03/22/23 History Sulfate Hfa] Allergies Allergy/AdvReac Type Severity Reaction Status Date / Time No Known Allergies Allergy Verified 03/22/23 07:51 Physical Exam Vitals: Vital Signs Temp Pulse Resp BP Pulse Ox FiO2 03/22/23 12:14 98.2 F 99 18 154/115 95 03/22/23 10:00 92 22 150/123 99 03/22/23 08:45 90 24 145/109 94 L 03/22/23 07:45 96 03/22/23 07:30 50 03/22/23 07:15 97.6 F 93 20 115/90 100 03/22/23 06:58 91 16 148/113 94 L 03/22/23 06:35 93 L 03/22/23 05:34 94 20 155/113 97 03/22/23 04:56 87 18 03/22/23 04:44 86 26 H 03/22/23 02:05 84 16 158/114 99 03/22/23 01:50 170/121 99 03/22/23 00:59 98 03/22/23 00:57 108 H 18 186/137 88 L 03/22/23 00:24 98.7 F 115 H 28 H 186/156 96 Intake and Output 03/21/23 03/22/23 03/22/23 22:59 06:59 14:59 Output Total 350 Balance -350 Output: Urine 350 Uretheral (Alfaro) 350 Other: Weight 78.925 kg Results 03/22/23 01:03 03/22/23 01:03 Cardiac Enzymes 03/22/23 03/22/23 03/22/23 Range/Units 01:03 01:03 05:31 AST 89 H (17-59) U/L Troponin I 0.103 H* 0.102 H* (0.000-0.034) ng/mL 03/22/23 Range/Units 08:26 AST (17-59) U/L Troponin I 0.117 H* (0.000-0.034) ng/mL Coagulation 03/22/23 Range/Units 01:03 PT 11.2 (10.0-12.5) sec APTT 24.7 (22.0-30.0) sec CBC 03/22/23 Range/Units 01:03 WBC 10.5 (3.8-10.6) k/uL RBC 5.27 (4.30-5.90) m/uL Hgb 15.5 (13.0-17.5) gm/dL Hct 48.0 (39.0-53.0) % Plt Count (150-450) k/uL Comprehensive Metabolic Panel 03/22/23 Range/Units 01:03 Sodium 133 L (137-145) mmol/L Potassium 3.7 (3.5-5.1) mmol/L Chloride 102 (98-107) mmol/L Carbon Dioxide 21 L (22-30) mmol/L BUN 22 H (9-20) mg/dL Creatinine 1.08 (0.66-1.25) mg/dL Glucose 107 H (74-99) mg/dL Calcium 8.2 L (8.4-10.2) mg/dL AST 89 H (17-59) U/L ALT 173 H (4-49) U/L Alkaline Phosphatase 380 H (38-126) U/L Total Protein 6.5 (6.3-8.2) g/dL Albumin 3.0 L (3.5-5.0) g/dL Current Medications Generic Name Dose Route Start Last Admin Trade Name Freq PRN Reason Stop Dose Admin Carvedilol 6.25 mg 03/22/23 08:30 03/22/23 10:18 Carvedilol 6.25 Mg Tab PO 6.25 mg BID-W/MEALS TANO Administration Clonidine HCl 1 patch 03/22/23 09:45 03/22/23 10:19 Clonidine 0.1 Mg/24hr Patch TRANSDERM 1 patch Q7D TANO Administration Furosemide 40 mg 03/22/23 16:00 Furosemide 10 Mg/Ml 4 Ml Vial IV Q12H TANO Lorazepam 0.5 mg 03/22/23 03:00 03/22/23 07:41 Lorazepam 2 Mg/Ml Inj IV 0.5 mg Q6HR PRN Administration Anxiety Morphine Sulfate 4 mg 03/22/23 03:00 03/22/23 03:37 Morphine Sulfate 4 Mg/Ml Syringe IVP 4 mg Q4HR PRN Administration Pain Naloxone HCl 0.2 mg 03/22/23 06:24 Naloxone 0.4 Mg/Ml 1 Ml Vial IV Q2M PRN Opioid Reversal Ondansetron HCl 4 mg 03/22/23 06:24 Ondansetron 4 Mg/2 Ml Vial IVP Q8HR PRN Nausea And Vomiting Intake and Output 03/21/23 03/22/23 03/22/23 22:59 06:59 14:59 Output Total 350 Balance -350 Output: Urine 350 Uretheral (Alfaro) 350 Other: Weight 78.925 kg 03/22/23 01:03 03/22/23 01:03
[2023-03-22] MEDS: FUROSEMIDE 10 MG/ML 4 ML VIAL IV SCH (15:57)
[2023-03-22] MEDS: lisinopriL 10 MG TAB PO SCH (15:58)
--- NOTE | 2023-03-22 17:09 | XR ---
EXAMINATION TYPE: XR chest 1V portable DATE OF EXAM: 03/22/2023 4:55 PM CLINICAL INDICATION:Male, 47 years old with history of shortness of breath; COMPARISON: Same day TECHNIQUE: XR chest 1V portable Frontal view of the chest. FINDINGS: Lungs/Pleura: No evidence of focal consolidation or pneumothorax. Blunting of the costophrenic angles is present. Pulmonary vascularity: Pulmonary vascular congestion. Heart/mediastinum: Cardiomediastinal silhouette is enlarged and stable. Musculoskeletal: No acute osseous pathology. IMPRESSION: Improved aeration of the lungs with persistent cardiomegaly, pulmonary vascular congestion and bilate ral pleural effusions. Correlate with BNP for congestive heart failure.
--- NOTE | 2023-03-23 00:17 | OP ---
OPERATIVE REPORT DATE OF SERVICE : 03/22/2023 OPERATION: Right-sided thoracentesis. PREOPERATIVE DIAGNOSES: Congestive heart failure and right-sided pleural effusion. POSTOPERATIVE DIAGNOSES: Congestive heart failure and right-sided pleural effusion. ANESTHESIA USED: 2 mL of 1% lidocaine. DESCRIPTION OF PROCEDURE: The patient was placed in the sitting upright position, the area of the fluid was marked earlier by ultrasound guidance, and a marking was placed at the 8th intercostal space and tip of the scapula. The patient was placed in a sitting upright position, the area was prepared in a sterile fashion. Drapes were applied. . The area of the marking was locally anesthetized with lidocaine, and a 26-gauge needle inserted into the right pleural space, fluid was localized with a needle. Then, a small tiny incision was made and a standard thoracentesis catheter and needle used. Needle inserted at the same site, advanced into the pleural space; and as the fluid was obtained, the catheter was advanced over the needle and the needle was pulled out of the pleural space. Freely flowing fluid was removed, roughly 1000 mL of slightly serosanguineous fluid was removed from the right pleural space. The fluid was sent for different diagnostic studies. Chest x-ray showed complete resolution of his right- sided pleural effusion, no complication, and no evidence of pneumothorax. MMODL / IJN: [id number] /
[2023-03-23 04:05] LABS: Basophils # (A) 0.1 k/uL (0-0.2); Basophils % (A) 1 %; Eosinophils # (A) 0.1 k/uL (0-0.7); Eosinophils % (A) 1 %; HCT 44.9 % (39.0-53.0); HGB 14.3 gm/dL (13.0-17.5); Hypochromasia Slight; Lymphocytes # (A) 1.6 k/uL (1.0-4.8); Lymphocytes % (A) 17 %; MCH 29.2 pg (25.0-35.0); MCHC 31.8 g/dL (31.0-37.0); MCV 91.8 fL (80.0-100.0); Mean Platelet Volume 11.2; Monocytes # (A) 0.8 k/uL (0-1.0); Monocytes % (A) 8 %; Neutrophils # (A) 6.8 k/uL (1.3-7.7); Neutrophils % (A) 71 %; Platelet Count 161 k/uL (150-450); RBC 4.89 m/uL (4.30-5.90); RDW 14.7 % (11.5-15.5); WBC 9.5 k/uL (3.8-10.6)
[2023-03-23 04:26] LABS: ALT 173 U/L (4-49); AST 102 U/L (17-59); African American GFR (CKD) 74 (>60 ml/min/1.73 sqM); Albumin 2.4 g/dL (3.5-5.0); Alkaline Phosphatase 289 U/L (38-126); Anion Gap 11 mmol/L; Blood Urea Nitrogen 29 mg/dL (9-20); Calcium 7.6 mg/dL (8.4-10.2); Carbon Dioxide 20 mmol/L (22-30); Chloride 99 mmol/L (98-107); Glucose 104 mg/dL (74-99); Non-African American GFR(CKD) 64 (>60 ml/min/1.73 sqM); Phosphorus 4.5 mg/dL (2.5-4.5); Potassium 3.8 mmol/L (3.5-5.1); Sodium 130 mmol/L (137-145); Total Bilirubin 0.6 mg/dL (0.2-1.3); Total Protein 5.4 g/dL (6.3-8.2)
[2023-03-23] MEDS: FUROSEMIDE 10 MG/ML 4 ML VIAL IV SCH ×2 (04:45→10:57)
[2023-03-23] MEDS ORDERED: Potassium Replacement Protocol 1 EACH MISC MISCELLANE PRN (06:02)
[2023-03-23] MEDS: carvediloL 6.25 MG TAB PO SCH ×2 (06:31→17:14)
[2023-03-23 06:52] LABS: Glucose, BF Source Pleural fluid; Glucose, Body Fluid 120 mg/dL; LDH, Body Fluid Source Pleural fluid; T. Protein, Body Fluid Source Pleural fluid; Total Protein, Body Fluid 1130 mg/dL
[2023-03-23] MEDS ORDERED: POTASSIUM CHLORIDE ER 20 MEQ TAB.ER PO SCH (07:00)
[2023-03-23] MEDS: lisinopriL 10 MG TAB PO SCH (08:44)
--- NOTE | 2023-03-23 09:52 | XR ---
EXAMINATION TYPE: XR chest 1V portable DATE OF EXAM: 03/23/2023 Comparison: 03/22/2023 Clinical History: 47-year-old male post thoracentesis Findings: Heart borderline enlarged. Blunted left costophrenic angle remains. Mild patchy interstitial densitie s at the lower lungs. Mild hyperinflation. No appreciable pneumothorax. Impression: Similar borderline cardiomegaly. Suspect background COPD. Ongoing trace left pleural effusion with mi ld patchy bibasilar interstitial densities which are similar.
--- NOTE | 2023-03-23 12:10 | P.PN ---
Subjective Progress Note Date: 03/23/23 No new complaints today. Breathing is improving. BP is improved. Pt udnerwent thoracentesis with 1L fluid removed (serosanguinous). Gen: in no apparent distress, resting comfortably in bed Eyes: PERRL, no scleral injection or icterus HENT: normocephalic, atraumatic, good hearing acuity, moist mucous membranes Neck: no tracheal deviation, full range of motion Resp: Increased work of breathing with accessory muscle use, posterior crackles CVS: good distal perfusion x 4, 2+ pitting edema, JVD is present to the edge of the earlobe GI: soft, NTTP, ND, no hepatosplenomegaly : no suprapubic tenderness, no CVAT, beckett catheter not present MSK: no clubbing, no cyanosis, no noted contractures of extremities Skin: no noted rashes, petechiae; temperature of skin is appropriate Neuro: moving all extremities without signs of weakness, CN II-XII intact Hospital Course: 47 year old man with history of crack/cocaine abuse who was in [facility] [facility] presented from their facility with anasarca and dyspnea. In the emergency room, patient was afebrile, 186/156, heart rate 115, 96% on room air. CBC is unremarkable. Basic metabolic panel showed hyponatremia to 103 3, CO2 of 21, BUN 22, creatinine 1.08. Liver function tests showed AST of 89, LDL 173, alkaline phosphatase of 380. BNP was 15,200, troponins 0.103 and troponin 0.102. CRP was 1.6. D-dimer is 1.15. Coags are otherwise unremarkable. Patient was admitted to the hospital with cardiology consult for further evaluation. Pulmonology was also consulted, evaluated patient in the emergency room and found the patient had a pH of 7.41, pCO2 of 32, pO2 47 and had increased work of breathing, therefore upgraded the patient to inpatient ICU status for heart failure. Assessment/plan: Acute hypoxemic respiratory failure Acute systolic heart failure, ejection fraction 15-20% -Admit patient to ICU, pulmonology consult -s/p thoracentesis on 03/22: pleural fluid - total protein 1130, LDH 140 (transudative) -Discussed the case with cardiology, patient will be started on clonidine, hydralazine, Coreg -Echocardiogram is reviewed, ejection fraction 15-20%. -Lasix 40 mg IV twice a day reduced to daily dosing -Strict ins and outs, daily weights Cocaine abuse -Clonidine patch -Symptomatically control with Zofran when necessary Patient is full code Objective - Vital Signs Vital signs: Vital Signs Temp 97.7 F 03/23/23 12:00 Pulse 73 03/23/23 12:00 Resp 26 H 03/23/23 12:00 BP 114/76 03/23/23 12:00 Pulse Ox 94 L 03/23/23 12:00 FiO2 50 03/22/23 07:30 Intake & Output 03/22/23 03/23/23 03/23/23 18:59 06:59 18:59 Intake Total 1440 980 Output Total 1783 2356 2275 Balance -1785 -915 -1295 Weight 80.3 kg Intake: Oral 1440 980 Output: Urine 2571 2355 227 Uretheral (Beckett) 700 Other: Voiding Method Indwelling Catheter Indwelling Catheter Indwelling Catheter - Labs CBC & Chem 7: 03/23/23 03:13 03/23/23 03:13 Labs: Abnormal Lab Results - Last 24 Hours (Table) 03/22/23 03/22/23 03/23/23 Range/Units 14:22 16:30 03:13 Sodium 130 L (137-145) mmol/L Carbon Dioxide 20 L (22-30) mmol/L BUN 29 H (9-20) mg/dL Creatinine 1.31 H (0.66-1.25) mg/dL Glucose 104 H (74-99) mg/dL POC Glucose (mg/dL) 116 H (70-110) mg/dL Calcium 7.6 L (8.4-10.2) mg/dL AST 102 H (17-59) U/L ALT 173 H (4-49) U/L Alkaline Phosphatase 289 H (38-126) U/L Total Protein 5.4 L (6.3-8.2) g/dL Albumin 2.4 L (3.5-5.0) g/dL Fluid Appearance Hazy A (Clear)
--- NOTE | 2023-03-23 12:14 | P.PN ---
Subjective Progress Note Date: 03/23/23 Principal diagnosis: Acute systolic congestive heart failure This is a 47-year-old white male, history of cocaine abuse, patient smokes normally crack cocaine, patient was sent from [place] for severe shortness of breath and diffuse swelling and edema/anasarca. According to the patient is not aware of any previous history of congestive heart failure, but apparently the patient had history of hypertension, and poorly controlled blood pressure. Patient had cough, shortness of breath, no wheezing, no fever, no chills, no hemoptysis, and no chest pain. His main chief complaint was mostly shortness of breath which was relatively subacute over the last 1 week. Worse in the last 24 hours. Chest x-ray in the ER showed evidence of pulmonary edema and pleural effusions right more so than left, CT angiogram showed no evidence of pulmonary embolism, it did show pleural effusions and atelectasis, it also showed anasarca. Echocardiogram showed evidence of severe LV dysfunction and ejection fraction 15-20%. Moderate right ventricular dilatation with RVSP of 41, mod erate right atrial dilatation, moderate mitral regurgitation, and moderate to severe tricuspid regurgitation. During my evaluation, patient was on 2 L nasal cannula, ABG showed a pO2 of 47 pH of 7.41 and pCO2 of 32. As advised to be placed on a higher FiO2/6 L, recommended Lasix which was already given, and recommended ultrasound of the chest, and changed admission from admission to the cardiac floor to admission to ICU. Her drug screen on the patient was positive for opiates. Otherwise negative drug screen. BNP level was 15,200, troponin 0.117 Patient was reevaluated today on 03/23/2023, patient remains in the ICU, patient is feeling much better today compared to yesterday, he is at least -2.7 L over the last 24 hours receiving Lasix 40 mg and now cut down to daily incentive twice a day. Patient is breathing again much easier, the pleural effusion I drained yesterday seems to be transudative in nature with low protein and low LDH. Chest x-ray continues to show significant improvement after his thoracentesis, and there is no evidence of pulmonary edema on the chest x-ray today. WBC count is 9.5 hemoglobin 14.3, basic metabolic profile is normal BUN is 29 creatinine 1.31 hence I cut down on his Lasix to once daily instead of twice a day. Liver enzymes remain a bit elevated Objective - Vital Signs Vital signs: Vital Signs Temp 97.7 F 03/23/23 12:00 Pulse 73 03/23/23 12:00 Resp 26 H 03/23/23 12:00 BP 114/76 03/23/23 12:00 Pulse Ox 94 L 03/23/23 12:00 FiO2 50 03/22/23 07:30 Intake & Output 03/22/23 03/23/23 03/23/23 18:59 06:59 18:59 Intake Total 1440 980 Output Total 1785 2356 2275 Balance -3707 -103 -1298 Weight 80.3 kg Intake: Oral 1440 980 Output: Urine 1781 1453 2273 Uretheral (Alfaro) 700 Other: Voiding Method Indwelling Catheter Indwelling Catheter Indwelling Catheter - Exam Physical Exam: Revealed 47-year-old white male in no distress, on 1 L nasal cannula Head: Atraumatic, normocephalic. HEENT:[Neck is supple.] [No neck masses.] [No thyromegaly.] No JVD noted today Chest: Clear breath sound bilaterally no crackles or rhonchi or wheezes Cardiac Exam: Normal S1 and S2, 2/6 systolic murmur thought the precordium Abdomen: [Soft, nontender, no megaly, no rebound, no guarding, normal bowel sounds. Mild ascites.] Extremities: [No clubbing, 1+ bipedal edema, no cyanosis.] Neurological Exam: [Alert and oriented 3 in no gross focal neurologic deficit Psychiatric: Normal mood affect and normal mental status examination Skin: No rashes. - Labs CBC & Chem 7: 03/23/23 03:13 03/23/23 03:13 Labs: Abnormal Lab Results - Last 24 Hours (Table) 03/22/23 03/22/23 03/23/23 Range/Units 14:22 16:30 03:13 Sodium 130 L (137-145) mmol/L Carbon Dioxide 20 L (22-30) mmol/L BUN 29 H (9-20) mg/dL Creatinine 1.31 H (0.66-1.25) mg/dL Glucose 104 H (74-99) mg/dL POC Glucose (mg/dL) 116 H (70-110) mg/dL Calcium 7.6 L (8.4-10.2) mg/dL AST 102 H (17-59) U/L ALT 173 H (4-49) U/L Alkaline Phosphatase 289 H (38-126) U/L Total Protein 5.4 L (6.3-8.2) g/dL Albumin 2.4 L (3.5-5.0) g/dL Fluid Appearance Hazy A (Clear) Assessment and Plan Assessment: Impression: Acute hypoxic respiratory failure Acute systolic congestive heart failure, ejection fraction is 15-20% Valvular heart disease including mitral valve regurgitation and tricuspid valve regurgitation Severe cardiomyopathy, needs further investigation , most likely related to substance abuse./Crack cocaine History of benign essential hypertension, under control Biventricular heart failure, improved Chronic pulmonary hypertension secondary to severe LV dysfunction History of substance abuse/crack cocaine Recommendation: Will transfer the patient today to a cardiac floor. Continue oxygen and titrate accordingly Continue diuretics/Lasix however cut down the Lasix to 40 mg daily instead of twice a day Results of the pleural effusion findings were discussed with the patient and again they are transudative in nature, consistent with congestive heart failure Cardiology consultation for further investigation of his cardiomyopathy and LV dysfunction GI and DVT prophylaxis We will continue to follow Time with Patient: Less than 30
[2023-03-23] MEDS: SPIRONOLACTONE 25 MG TAB PO SCH (12:22)
--- NOTE | 2023-03-23 12:49 | P.PN ---
Subjective Progress Note Date: 03/23/23 The patient is a 47-year-old male who is admitted to [place] for crack cocaine abuse. He developed worsening shortness of breath and therefore was transferred to our facility. He was found to be in acute congestive heart failure with bilateral pleural effusions. Ejection fraction is currently 20% w ith global hypokinesis with moderate valvular abnormalities. He underwent thoracentesis yesterday, where a liter of fluid was removed. The patient was interviewed and examined resting comfortably in bed. He states his breathing has significantly improved. We had an extensive conversation regarding his cardiomyopathy in the underlying cause likely being secondary to drug abuse. We also discussed his elevated liver enzymes and the importance of being compliant with his follow-up regimen. GENERAL: Well-appearing, well-nourished and in no acute distress. NECK: Supple without JVD or thyromegaly. LUNGS: Breath sounds clear to auscultation bilaterally. Respiration equal and unlabored. No wheezes, rales or rhonchi. HEART: Regular rate and rhythm. Soft systolic murmur. No rubs or gallops. S1 and S2 heard. EXTREMITIES: Normal range of motion, no edema. No clubbing or cyanosis. Peripheral pulses intact and strong. TELEMETRY: Sinus rhythm overnight IMPRESSION: Acute hypoxic respiratory failure. Acute systolic heart failure Severe dilated cardiomyopathy Valvular heart disease Hypertension Crack cocaine use Elevated liver enzymes PLAN: Continue IV diuretics for additional 24 hours prior to transitioning to oral Add spironolactone Tomorrow we will discontinue Catapres and maximize beta maxwell Further recommendations to be based upon clinical course I am dictating on behalf of Dr Anastacio Santiago's history/physical and assessment/plan. Objective - Vital Signs Vital signs: Vital Signs Temp 97.7 F 03/23/23 12:00 Pulse 73 03/23/23 12:00 Resp 26 H 03/23/23 12:00 BP 114/76 03/23/23 12:00 Pulse Ox 94 L 03/23/23 12:00 FiO2 50 03/22/23 07:30 Intake & Output 03/22/23 03/23/23 03/23/23 18:59 06:59 18:59 Intake Total 1440 980 Output Total 1784 2355 2275 Balance -1785 -915 -1295 Weight 80.3 kg Intake: Oral 1440 980 Output: Urine 1785 2355 2275 Uretheral (Alfaro) 700 Other: Voiding Method Indwelling Catheter Indwelling Catheter Indwelling Catheter - Labs CBC & Chem 7: 03/23/23 03:13 03/23/23 03:13 Labs: Abnormal Lab Results - Last 24 Hours (Table) 03/22/23 03/22/23 03/23/23 Range/Units 14:22 16:30 03:13 Sodium 130 L (137-145) mmol/L Carbon Dioxide 20 L (22-30) mmol/L BUN 29 H (9-20) mg/dL Creatinine 1.31 H (0.66-1.25) mg/dL Glucose 104 H (74-99) mg/dL POC Glucose (mg/dL) 116 H (70-110) mg/dL Calcium 7.6 L (8.4-10.2) mg/dL AST 102 H (17-59) U/L ALT 173 H (4-49) U/L Alkaline Phosphatase 289 H (38-126) U/L Total Protein 5.4 L (6.3-8.2) g/dL Albumin 2.4 L (3.5-5.0) g/dL Fluid Appearance Hazy A (Clear)
[2023-03-24] MEDS ORDERED: IPRATROPIUM-ALBUTEROL 3 ML NEB INHALATION PRN (01:55)
[2023-03-24 04:47] LABS: Basophils % (A) 1 %; Eosinophils # (A) 0.1 k/uL (0-0.7); Eosinophils % (A) 1 %; HCT 45.1 % (39.0-53.0); HGB 14.3 gm/dL (13.0-17.5); Hypochromasia Slight; Lymphocytes # (A) 1.8 k/uL (1.0-4.8); Lymphocytes % (A) 21 %; MCH 29.3 pg (25.0-35.0); MCHC 31.8 g/dL (31.0-37.0); MCV 92.1 fL (80.0-100.0); Mean Platelet Volume 11.5; Monocytes # (A) 0.7 k/uL (0-1.0); Monocytes % (A) 8 %; Neutrophils # (A) 5.6 k/uL (1.3-7.7); Neutrophils % (A) 66 %; Platelet Count 190 k/uL (150-450); RBC 4.89 m/uL (4.30-5.90); RDW 14.6 % (11.5-15.5); WBC 8.5 k/uL (3.8-10.6)
--- NOTE | 2023-03-24 04:47 | XR ---
EXAM: XR Chest, 1 View CLINICAL HISTORY: ITS.REASON XR Reason: pleural effusion TECHNIQUE: Frontal view of the chest. COMPARISON: 03/23/23 FINDINGS: Lungs: Small bilateral airspace opacities. Pleural space: Persistent small bilateral pleural effusions. Heart: Cardiomegaly. Mediastinum: Unremarkable. Normal mediastinal contour. Bones/joints: No acute findings. IMPRESSION: No substantial change.
[2023-03-24 04:55] LABS: African American GFR (CKD) 74 (>60 ml/min/1.73 sqM); Anion Gap 5 mmol/L; Blood Urea Nitrogen 29 mg/dL (9-20); Calcium 7.9 mg/dL (8.4-10.2); Carbon Dioxide 26 mmol/L (22-30); Chloride 99 mmol/L (98-107); Glucose 101 mg/dL (74-99); Non-African American GFR(CKD) 64 (>60 ml/min/1.73 sqM); Potassium 4.1 mmol/L (3.5-5.1); Sodium 130 mmol/L (137-145)
[2023-03-24] MEDS: carvediloL 6.25 MG TAB PO SCH (06:54)
[2023-03-24] MEDS: SPIRONOLACTONE 25 MG TAB PO SCH (08:10)
[2023-03-24] MEDS: lisinopriL 10 MG TAB PO SCH (08:10)
[2023-03-24] MEDS: FUROSEMIDE 10 MG/ML 4 ML VIAL IV SCH (08:11)
--- NOTE | 2023-03-24 11:34 | P.PN ---
Subjective Progress Note Date: 03/24/23 Principal diagnosis: Acute systolic congestive heart failure This is a 47-year-old white male, history of cocaine abuse, patient smokes normally crack cocaine, patient was sent from [place] for severe shortness of breath and diffuse swelling and edema/anasarca. According to the patient is not aware of any previous history of congestive heart failure, but apparently the patient had history of hypertension, and poorly controlled blood pressure. Patient had cough, shortness of breath, no wheezing, no fever, no chills, no hemoptysis, and no chest pain. His main chief complaint was mostly shortness of breath which was relatively subacute over the last 1 week. Worse in the last 24 hours. Chest x-ray in the ER showed evidence of pulmonary edema and pleural effusions right more so than left, CT angiogram showed no evidence of pulmonary embolism, it did show pleural effusions and atelectasis, it also showed anasarca. Echocardiogram showed evidence of severe LV dysfunction and ejection fraction 15-20%. Moderate right ventricular dilatation with RVSP of 41, mod erate right atrial dilatation, moderate mitral regurgitation, and moderate to severe tricuspid regurgitation. During my evaluation, patient was on 2 L nasal cannula, ABG showed a pO2 of 47 pH of 7.41 and pCO2 of 32. As advised to be placed on a higher FiO2/6 L, recommended Lasix which was already given, and recommended ultrasound of the chest, and changed admission from admission to the cardiac floor to admission to ICU. Her drug screen on the patient was positive for opiates. Otherwise negative drug screen. BNP level was 15,200, troponin 0.117 Patient was reevaluated today on 03/23/2023, patient remains in the ICU, patient is feeling much better today compared to yesterday, he is at least -2.7 L over the last 24 hours receiving Lasix 40 mg and now cut down to daily incentive twice a day. Patient is breathing again much easier, the pleural effusion I drained yesterday seems to be transudative in nature with low protein and low LDH. Chest x-ray continues to show significant improvement after his thoracentesis, and there is no evidence of pulmonary edema on the chest x-ray today. WBC count is 9.5 hemoglobin 14.3, basic metabolic profile is normal BUN is 29 creatinine 1.31 hence I cut down on his Lasix to once daily instead of twice a day. Liver enzymes remain a bit elevated Patient was reevaluated today on 03/24/23, remains in the ICU, in no distress, patient is feeling better, breathing easier, patient is on room air. He is actually an overflow in the ICU. CBC is normal WBC count is 8.5 hemoglobin 14.3, sodium is 130 potassium 4.1 BUN is 29 and creatinine 1.31, the results of the fluid from his right pleural effusion are consistent with transudate of pleural effusion consistent with congestive heart failure. Chest x-ray today showed minimal atelectasis at the bases and small tiny pleural effusions significantly improved compared to the chest x-ray on admission. Objective - Vital Signs Vital signs: Vital Signs Temp 97.7 F 03/24/23 08:00 Pulse 75 03/24/23 08:00 Resp 15 03/24/23 08:00 BP 137/98 03/24/23 08:00 Pulse Ox 98 03/24/23 08:00 FiO2 50 03/22/23 07:30 Intake & Output 03/23/23 03/24/23 03/24/23 18:59 06:59 18:59 Intake Total 1830 720 500 Output Total 2860 800 3060 Balance -1030 -80 -2560 Weight 80.6 kg Intake: Oral 1830 720 500 Output: Urine 2860 800 3060 Other: Voiding Method Indwelling Catheter Indwelling Catheter Indwelling Catheter # Bowel Movements 1 - Exam Physical Exam: Revealed 47-year-old white male in no distress, on room air Head: Atraumatic, normocephalic. HEENT:[Neck is supple.] [No neck masses.] [No thyromegaly.] No JVD noted today Chest: Clear breath sound bilaterally no crackles or rhonchi or wheezes Cardiac Exam: Normal S1 and S2, 2/6 systolic murmur thought the precordium Abdomen: [Soft, nontender, no megaly, no rebound, no guarding, normal bowel sounds. Mild ascites.] Extremities: [No clubbing, 1+ bipedal edema, no cyanosis.] Neurological Exam: [Alert and oriented 3 in no gross focal neurologic deficit Psychiatric: Normal mood affect and normal mental status examination Skin: No rashes. - Labs CBC & Chem 7: 03/24/23 04:19 03/24/23 04:19 Labs: Abnormal Lab Results - Last 24 Hours (Table) 03/24/23 Range/Units 04:19 Sodium 130 L (137-145) mmol/L BUN 29 H (9-20) mg/dL Creatinine 1.31 H (0.66-1.25) mg/dL Glucose 101 H (74-99) mg/dL Calcium 7.9 L (8.4-10.2) mg/dL Microbiology - Last 24 Hours (Table) 03/22/23 16:30 Acid Fast Bacilli Smear - Preliminary Pleural Fluid 03/22/23 16:30 Gram Stain - Preliminary Pleural Fluid Body Fluid Culture - Preliminary 03/22/23 05:40 Blood Culture - Preliminary Blood 03/22/23 05:25 Blood Culture - Preliminary Blood Assessment and Plan Assessment: Impression: Acute hypoxic respiratory failure Acute systolic congestive heart failure, ejection fraction is 15-20% Valvular heart disease including mitral valve regurgitation and tricuspid valve regurgitation Severe cardiomyopathy, needs further investigation , most likely related to substance abuse./Crack cocaine History of benign essential hypertension, under control Biventricular heart failure, improved Chronic pulmonary hypertension secondary to severe LV dysfunction History of substance abuse/crack cocaine Recommendation: Awaiting patient to be transferred to a cardiac floor/monitor bed Patient is off oxygen and does not need oxygen at this point. Transition Lasix to oral 40 mg by mouth daily continue Aldactone 12.5 mg daily Cardiology is following regarding his severe cardiomyopathy and LV dysfunction GI and DVT prophylaxis We'll follow as needed. Time with Patient: Less than 30
--- NOTE | 2023-03-24 11:45 | P.PN ---
Subjective Progress Note Date: 03/24/23 No new complaints today. Breathing is improving. Now tolerating room air. Gen: in no apparent distress, resting comfortably in bed Eyes: PERRL, no scleral injection or icterus HENT: normocephalic, atraumatic, good hearing acuity, moist mucous membranes Neck: no tracheal deviation, full range of motion Resp: Increased work of breathing with accessory muscle use, posterior crackles CVS: good distal perfusion x 4, 2+ pitting edema, JVD is present to the edge of the earlobe GI: soft, NTTP, ND, no hepatosplenomegaly : no suprapubic tenderness, no CVAT, beckett catheter not present MSK: no clubbing, no cyanosis, no noted contractures of extremities Skin: no noted rashes, petechiae; temperature of skin is appropriate Neuro: moving all extremities without signs of weakness, CN II-XII intact Hospital Course: 47 year old man with history of crack/cocaine abuse who was in [place] presented from their facility with anasarca and dyspnea. In the emergency room, patient was afebrile, 186/156, heart rate 115, 96% on room air. CBC is unremarkable. Basic metabolic panel showed hyponatremia to 103 3, CO2 of 21, BUN 22, creatinine 1.08. Liver function tests showed AST of 89, LDL 173, alkaline phosphatase of 380. BNP was 15,200, troponins 0.103 and troponin 0.102. CRP was 1.6. D-dimer is 1.15. Coags are otherwise unremarkable. Patient was admitted to the hospital with cardiology consult for further evaluation. Pulmonology was also consulted, evaluated patient in the emergency room and found the patient had a pH of 7.41, pCO2 of 32, pO2 47 and had increased work of breathing, therefore upgraded the patient to inpatient ICU status for heart failure. Assessment/plan: Acute hypoxemic respiratory failure Acute systolic heart failure, ejection fraction 15-20% -Admit patient to ICU, pulmonology consult -s/p thoracentesis on 03/22: pleural fluid - total protein 1130, LDH 140 (tra nsudative) -Discussed the case with cardiology, patient will be started on clonidine, hydralazine, Coreg -Echocardiogram is reviewed, ejection fraction 15-20%. -Lasix 40 mg IV twice a day reduced to daily dosing -Strict ins and outs, daily weights Cocaine abuse -Clonidine patch -Symptomatically control with Zofran when necessary Patient is full code Objective - Vital Signs Vital signs: Vital Signs Temp 97.7 F 03/24/23 08:00 Pulse 75 03/24/23 08:00 Resp 15 03/24/23 08:00 BP 137/98 03/24/23 08:00 Pulse Ox 98 03/24/23 08:00 FiO2 50 03/22/23 07:30 Intake & Output 03/23/23 03/24/23 03/24/23 18:59 06:59 18:59 Intake Total 1830 720 600 Output Total 2860 800 3360 Balance -9083 -80 -4540 Weight 80.6 kg Intake: Oral 1830 720 600 Output: Urine 2860 800 3360 Other: Voiding Method Indwelling Catheter Indwelling Catheter Indwelling Catheter # Voids 1 # Bowel Movements 1 - Labs CBC & Chem 7: 03/24/23 04:19 03/24/23 04:19 Labs: Abnormal Lab Results - Last 24 Hours (Table) 03/24/23 Range/Units 04:19 Sodium 130 L (137-145) mmol/L BUN 29 H (9-20) mg/dL Creatinine 1.31 H (0.66-1.25) mg/dL Glucose 101 H (74-99) mg/dL Calcium 7.9 L (8.4-10.2) mg/dL Microbiology - Last 24 Hours (Table) 03/22/23 16:30 Acid Fast Bacilli Smear - Preliminary Pleural Fluid 03/22/23 16:30 Gram Stain - Preliminary Pleural Fluid Body Fluid Culture - Preliminary 03/22/23 05:40 Blood Culture - Preliminary Blood 03/22/23 05:25 Blood Culture - Preliminary Blood
--- NOTE | 2023-03-24 12:18 | P.PN ---
Subjective Progress Note Date: 03/24/23 The patient is a 47-year-old male who is admitted to [facility] for crack cocaine abuse. He developed worsening shortness of breath and therefore was transferred to our facility. He was found to be in acute congestive heart failure with bilateral pleural effusions. Ejection fraction is currently 20% w ith global hypokinesis with moderate valvular abnormalities. He underwent thoracentesis with 1 L fluid removal. In process of maximizing heart failure medications. Patient was interviewed and examined in the recliner chair. He states he has had some dizziness and lightheadedness upon standing. His breathing overall has significantly improved. GENERAL: Well-appearing, well-nourished and in no acute distress. NECK: Supple without JVD or thyromegaly. LUNGS: Breath sounds clear to auscultation bilaterally. Respiration equal and unlabored. No wheezes, rales or rhonchi. HEART: Regular rate and rhythm. Soft systolic murmur. No rubs or gallops. S1 and S2 heard. EXTREMITIES: Normal range of motion, no edema. No clubbing or cyanosis. Peripheral pulses intact and strong. TELEMETRY: Sinus rhythm overnight IMPRESSION: Acute hypoxic respiratory failure. Acute systolic heart failure Severe dilated cardiomyopathy Valvular heart disease Hypertension Crack cocaine use Elevated liver enzymes PLAN: Discontinue catapres Maximize beta blockers Transition to oral diuretics Encourage ambulation and pulmonary hygiene Further recommendations based on clinical course I am dictating on behalf of Dr Anastacio Santiago's history/physical and assessment/plan. Objective - Vital Signs Vital signs: Vital Signs Temp 97.7 F 03/24/23 08:00 Pulse 75 03/24/23 08:00 Resp 15 03/24/23 08:00 BP 137/98 03/24/23 08:00 Pulse Ox 98 03/24/23 08:00 FiO2 50 03/22/23 07:30 Intake & Output 03/23/23 03/24/23 03/24/23 18:59 06:59 18:59 Intake Total 1830 720 600 Output Total 2860 800 3360 Balance -7010 -80 -0036 Weight 80.6 kg Intake: Oral 1830 720 600 Output: Urine 2860 800 3360 Other: Voiding Method Indwelling Catheter Indwelling Catheter Indwelling Catheter # Voids 1 # Bowel Movements 1 - Labs CBC & Chem 7: 03/24/23 04:19 03/24/23 04:19 Labs: Abnormal Lab Results - Last 24 Hours (Table) 03/24/23 Range/Units 04:19 Sodium 130 L (137-145) mmol/L BUN 29 H (9-20) mg/dL Creatinine 1.31 H (0.66-1.25) mg/dL Glucose 101 H (74-99) mg/dL Calcium 7.9 L (8.4-10.2) mg/dL Microbiology - Last 24 Hours (Table) 03/22/23 16:30 Acid Fast Bacilli Smear - Preliminary Pleural Fluid 03/22/23 16:30 Gram Stain - Preliminary Pleural Fluid Body Fluid Culture - Preliminary 03/22/23 05:40 Blood Culture - Preliminary Blood 03/22/23 05:25 Blood Culture - Preliminary Blood
[2023-03-24] MEDS: carvediloL 12.5 MG TAB PO SCH (17:08)
[2023-03-25] MEDS ORDERED: lisinopriL 10 MG TAB PO STA (02:34)
[2023-03-25] MEDS ORDERED: cloNIDine 0.1 MG/24HR PATCH TRANSDERM SCH (03:00)
--- NOTE | 2023-03-25 07:11 | P.PN ---
Subjective Progress Note Date: 03/25/23 Principal diagnosis: Cardiomyopathy The patient is a 47-year-old gentleman with a past medical history significant for history of drug abuse who was in the rehab facility and was admitted to the hospital with heart failure and was diagnosed with severe cardiomyopathy. 03/25/2023 The patient was seen and evaluated this morning. He seems to be euvolemic on examination but the pressure remains elevated and consistent with stage II hypertension. The dose of lisinopril has been adjusted. Today we will continue monitor the blood pressure at this point and consider adjusting the medications to get the pressure under control. Clinically he is asymptomatic. He is not on any vasopressors. Beside that the patient need to undergo a heart catheterization to rule out severe underlying coronary artery disease. The examination is remarkable for soft systolic murmur at the right upper sternal border with elevated blood pressure. Assessment History of drug abuse Severe cardiomyopathy Valvular heart disease Multiple comorbid conditions Plan Continue the current medical regimen Continue adjusting the medication to get the pressure under control Consider coronary angiogram Follow-up with the patient Objective - Vital Signs Vital signs: Vital Signs Temp 98.6 F 03/25/23 04:00 Pulse 82 03/25/23 04:00 Resp 14 03/25/23 04:00 BP 150/105 03/25/23 04:00 Pulse Ox 99 03/25/23 04:00 FiO2 50 03/22/23 07:30 Intake & Output 03/24/23 03/25/23 03/25/23 18:59 06:59 18:59 Intake Total 850 550 Output Total 3685 500 Balance -2835 50 Intake: Oral 850 550 Output: Urine 3685 500 Other: Voiding Method Indwelling Catheter Indwelling Catheter # Voids 1 1 - Labs CBC & Chem 7: 03/24/23 04:19 03/24/23 04:19 Labs: Microbiology - Last 24 Hours (Table) 03/22/23 16:30 Gram Stain - Preliminary Pleural Fluid Body Fluid Culture - Preliminary 03/22/23 05:40 Blood Culture - Preliminary Blood 03/22/23 05:25 Blood Culture - Preliminary Blood
[2023-03-25 07:35] LABS: Appearance,BF Blood Tinged (Clear)
--- NOTE | 2023-03-25 10:23 | P.PN ---
Subjective Progress Note Date: 03/25/23 No new complaints today. Breathing is improving. Now tolerating room air. Gen: in no apparent distress, resting comfortably in bed Eyes: PERRL, no scleral injection or icterus HENT: normocephalic, atraumatic, good hearing acuity, moist mucous membranes Neck: no tracheal deviation, full range of motion Resp: Increased work of breathing with accessory muscle use, posterior crackles CVS: good distal perfusion x 4, 2+ pitting edema, JVD is present to the edge of the earlobe GI: soft, NTTP, ND, no hepatosplenomegaly : no suprapubic tenderness, no CVAT, beckett catheter not present MSK: no clubbing, no cyanosis, no noted contractures of extremities Skin: no noted rashes, petechiae; temperature of skin is appropriate Neuro: moving all extremities without signs of weakness, CN II-XII intact Hospital Course: 47 year old man with history of crack/cocaine abuse who was in [facility] presented from their facility with anasarca and dyspnea. In the emergency room, patient was afebrile, 186/156, heart rate 115, 96% on room air. CBC is unremarkable. Basic metabolic panel showed hyponatremia to 103 3, CO2 of 21, BUN 22, creatinine 1.08. Liver function tests showed AST of 89, LDL 173, alkaline phosphatase of 380. BNP was 15,200, troponins 0.103 and troponin 0.102. CRP was 1.6. D-dimer is 1.15. Coags are otherwise unremarkable. Patient was admitted to the hospital with cardiology consult for further evaluation. Pulmonology was also consulted, evaluated patient in the emergency room and found the patient had a pH of 7.41, pCO2 of 32, pO2 47 and had increased work of breathing, therefore upgraded the patient to inpatient ICU status for heart failure. Pt was diuresed with lasix and his oxygenation improved to room air. Echocardiogram was completed which showed severe cardiomyopathy with EF 15-20%. Pulmonology completed a thoracentesis on 03/22, which pleural fluid being transudative (TP 1130, LDH 140). Cardiology did recommend LHC, and the timing of this was still TBD by their service. Assessment/plan: Acute hypoxemic respiratory failure Acute systolic heart failure, ejection fraction 15-20% -Admit patient to ICU, pulmonology consult -s/p thoracentesis on 03/22: pleural fluid - total protein 1130, LDH 140 (transudative) -Cardiology consult appreciated -Pulmonology consult appreciated -patient is on clonidine, lisinopril, Coreg, spironolactone. Can add farxiga on discharge -Echocardiogram is reviewed, ejection fraction 15-20%. -Lasix transitioned to 20mg daily PO -Strict ins and outs, daily weights Cocaine abuse -Cessation counseling -Clonidine patch -Symptomatically control with Zofran when necessary Patient is full code Objective - Vital Signs Vital signs: Vital Signs Temp 98.6 F 03/25/23 04:00 Pulse 82 03/25/23 04:00 Resp 14 03/25/23 04:00 BP 150/105 03/25/23 04:00 Pulse Ox 99 03/25/23 04:00 FiO2 50 03/22/23 07:30 Intake & Output 03/24/23 03/25/23 03/25/23 18:59 06:59 18:59 Intake Total 850 550 Output Total 3685 500 Balance -2835 50 Intake: Oral 850 550 Output: Urine 3685 500 Other: Voiding Method Indwelling Catheter Indwelling Catheter # Voids 1 1 - Labs CBC & Chem 7: 03/24/23 04:19 03/24/23 04:19 Labs: Abnormal Lab Results - Last 24 Hours (Table) 03/22/23 Range/Units 16:30 Fluid Appearance Blood Tinged A (Clear) Microbiology - Last 24 Hours (Table) 03/22/23 16:30 Gram Stain - Preliminary Pleural Fluid Body Fluid Culture - Preliminary 03/22/23 05:40 Blood Culture - Preliminary Blood 03/22/23 05:25 Blood Culture - Preliminary Blood
[2023-03-25] MEDS: FUROSEMIDE 20 MG TAB PO SCH (10:35)
[2023-03-25] MEDS: lisinopriL 20 MG TAB PO SCH (10:35)
[2023-03-25] MEDS: carvediloL 12.5 MG TAB PO SCH ×2 (10:36→18:04)
[2023-03-25] MEDS: SPIRONOLACTONE 25 MG TAB PO SCH (10:36)
[2023-03-25] MEDS ORDERED: SODIUM CHLORIDE 0.65% NASAL SPRAY 44 ML BTL NASAL PRN (10:43)
[2023-03-25] MEDS ORDERED: NITROGLYCERIN SL TABS 0.4 MG TAB SUBLINGUAL PRN (16:14)
[2023-03-25] MEDS ORDERED: ALPRAZolam 0.5 MG TAB PO PRN (16:14)
[2023-03-25] MEDS ORDERED: ALPRAZolam 0.25 MG TAB PO PRN (16:14)
[2023-03-26] MEDS ORDERED: SODIUM CHLORIDE 0.9% 1,000 ML in EMPTY BAG 1 BAG IV SCH (02:00)
[2023-03-26] MEDS: carvediloL 12.5 MG TAB PO SCH ×2 (05:22→17:37)
[2023-03-26] MEDS ORDERED: ASPIRIN 325 MG TAB PO ONE (06:00)
[2023-03-26] MEDS ORDERED: HEPARIN SODIUM,PORCINE 10,000 UNIT in SODIUM CHLORIDE 0.9% 1,000 ML IRRIGATION PRN (07:00)
[2023-03-26] MEDS ORDERED: HEPARIN SODIUM,PORCINE (1 ML) 2,500 UNIT in SODIUM CHLORIDE 0.9% 250 ML IRRIGATION PRN (07:00)
[2023-03-26] MEDS: SPIRONOLACTONE 25 MG TAB PO SCH (09:06)
[2023-03-26] MEDS: FUROSEMIDE 20 MG TAB PO SCH (09:06)
[2023-03-26] MEDS: lisinopriL 20 MG TAB PO SCH (09:06)
[2023-03-26 11:19] LABS: Basophils # (A) 0.1 k/uL (0-0.2); Basophils % (A) 1 %; Eosinophils # (A) 0.1 k/uL (0-0.7); Eosinophils % (A) 1 %; HCT 49.7 % (39.0-53.0); HGB 15.5 gm/dL (13.0-17.5); Hypochromasia Marked; Lymphocytes # (A) 1.3 k/uL (1.0-4.8); Lymphocytes % (A) 15 %; MCH 29.6 pg (25.0-35.0); MCHC 31.3 g/dL (31.0-37.0); MCV 94.5 fL (80.0-100.0); Mean Platelet Volume 12.8; Monocytes # (A) 0.8 k/uL (0-1.0); Monocytes % (A) 9 %; Neutrophils # (A) 6.3 k/uL (1.3-7.7); Neutrophils % (A) 72 %; RBC 5.25 m/uL (4.30-5.90); RDW 14.6 % (11.5-15.5); WBC 8.8 k/uL (3.8-10.6)
[2023-03-26 11:23] LABS: INR 0.9 (<1.2); Prothrombin Time 10.1 sec (10.0-12.5)
[2023-03-26 11:41] LABS: African American GFR (CKD) >90 (>60 ml/min/1.73 sqM); Anion Gap 7 mmol/L; Blood Urea Nitrogen 18 mg/dL (9-20); Calcium 8.2 mg/dL (8.4-10.2); Carbon Dioxide 27 mmol/L (22-30); Chloride 101 mmol/L (98-107); Glucose 110 mg/dL (74-99); Non-African American GFR(CKD) 79 (>60 ml/min/1.73 sqM); Potassium 4.6 mmol/L (3.5-5.1); Sodium 135 mmol/L (137-145)
[2023-03-26 11:42] LABS: African American GFR (CKD) 87 (>60 ml/min/1.73 sqM); Anion Gap 8 mmol/L; Blood Urea Nitrogen 17 mg/dL (9-20); Calcium 8.2 mg/dL (8.4-10.2); Carbon Dioxide 27 mmol/L (22-30); Chloride 101 mmol/L (98-107); Glucose 111 mg/dL (74-99); Non-African American GFR(CKD) 76 (>60 ml/min/1.73 sqM); Potassium 4.5 mmol/L (3.5-5.1); Sodium 136 mmol/L (137-145)
[2023-03-26 12:43] LABS: Large Platelets Present; Platelet Count 178 k/uL (150-450)
[2023-03-26] MEDS ORDERED: IV FLUID CONTINUATION 700 ML IV ONE (13:08)
[2023-03-26] MEDS ORDERED: HEPARIN SODIUM 1,000 UN/ML (10ML VL) ONE (13:16)
[2023-03-26] MEDS ORDERED: fentaNYL (PF) 50 MCG/ML 2 ML AMP ONE (13:16)
[2023-03-26] MEDS ORDERED: fentaNYL (PF) 50 MCG/ML 2 ML AMP IVP ONE (13:20)
[2023-03-26] MEDS ORDERED: MIDAZOLAM 2 MG/2 ML VIAL IVP ONE (13:20)
[2023-03-26] MEDS ORDERED: LIDOCAINE 1% INJ 10MG/ML (20 ML MDV) SQ ONE (13:21)
[2023-03-26] MEDS ORDERED: VERAPAMIL 2.5 MG/ML 2 ML AMP INTRAARTER ONE (13:22)
[2023-03-26] MEDS ORDERED: HEPARIN SODIUM 1,000 UN/ML (10ML VL) IV ONE (13:26)
[2023-03-26] MEDS ORDERED: IOPAMIDOL-370 100ML BTL INJ ONE (13:37)
[2023-03-26] MEDS ORDERED: RX INFO: IV CONTRAST WAS GIVEN 1 EACH MISC MISCELLANE PRN (13:46)
--- NOTE | 2023-03-26 13:53 | P.CARDCATH ---
Date of Procedure: 03/26/23 Description of Procedure: DIAGNOSTIC CORONARY ANGIOGRAPHY and LEFT HEART CATH REPORT PROCEDURES PERFORMED: Left heart catheterization Selective coronary angiography Moderate conscious sedation 20 mins Right radial access INDICATION: [Unstable angina] CONSENT: I have discussed the risks, benefits and alternative therapies for the above-mentioned procedure, sedation/analgesia and necessary blood product administration (if indicated, as they pertain to this patient). The patient has indicated understanding and acceptance of the risks and procedures discussed. Conscious Sedation: Patient's ECG, heart rate, blood pressure, pulse oximetry was monitored throughout the duration of procedure under my direct supervision. 2 mg Versed and 25 mg Fentanyl were used for induction of moderate conscious sedation. Total duration of moderate concious sedation 20 minutes. PROCEDURE: After explaining the risks, benefits and alternatives of the above mentioned procedures in detail to the patient, informed consent was obtained. Patient was taken to the catheterization lab, prepped and draped in usual sterile fashion using universal precuations. Barbow and rohith test were performed to confirm adequate perfusion to fingers. Ultrasound was used to identify the radial artery. 1% lidocaine was infiltrated over the right radial artery. A 6-Faroese sheath was placed and secured in the right radial artery using modified Seldinger technique. The sheath was flushed and 5 mg verapamil was administered intra-arterially. J tipped wire was advanced under fluoroscopic guidance. Once the wire tip reached aortic root [5000] units of IV heparin was given. Over the wire JL4 diagnostic catheter was advanced. Wire was removed, catheter was flushed and manipulated under fluoroscopy to selectively engaged the left coronary ostium. Left coronary angioplasty was performed in different angiographic projections. This catheter was exchanged for a JR4 diagnostic catheter over the wire. The catheter was flushed and manipulated to cross the aortic valve. LV pressures were obtained. Pullback was performed across aortic valve and catheter was manipulated to selectively engage the right coronary ostium under fluoroscopic guidance. Right coronary angiography was performed in different angiographic projections. Catheter was removed over the wire. Radial sheath was flushed. The right radial sheath was removed and a TR band was placed with excellent patent hemostasis was achieved. The patient tolerated the procedure well. Patient was transported back to the post catheterization holding area in stable condition. Angiographic images were reviewed in detail. HEMODYNAMICS: Aortic Pressure: 132/87 mmHg. LV pressure: 139/10 mmHg. LVEDP26 mmHg. SELECTIVE CORONARY ARTERIOGRAPHY: LEFT MAIN: The left main is a large caliber vessel which bifurcates into the LAD and circumflex. Left main appears angiographically normal. LEFT ANTERIOR DESCENDING CORONARY ARTERY: LAD is a large caliber vessel which wraps around to the apex. Proximal LAD has mild luminal irregularities. Mid LAD just at the bifurcation of diagonal 1 has 80% disease. There is sequential 90% mid LAD disease. Just at the bifurcation site of diagonal 2 there is a 90% disease. Diagonal 1 has ostial 70% disease. Diagonal 2 is medium caliber and has ostial 80-90% disease. Distal LAD is large caliber and appears angiographically normal. LEFT CIRCUMFLEX CORONARY ARTERY: It is nondominant vessel. Ostial LCx has mild disease. OM1 is a medium caliber vessel there is 90% ostial disease. Mid and distal LCx has 10-20% luminal irregularities RIGHT CORONARY ARTERY: Dominant vessel. 100% occluded. There are left to right epicardial and septal collaterals filling the PDA retrogradely. Looking at the faint collaterals it appears that PDA is a good target. IMPRESSION: Triple vessel disease 90% sequential mid LAD 90% ostial Diagonal 2 medium caliber 90% ostial OM1 medium caliber 100% RCA with left to right collaterals Elevated left sided filling pressures 20% EF by echo, ischemic cardiomyopathy PLAN: 75 cc fluids for 5 hours Cardiac thoracic surgery consult Performing Physician Foster Corey MD
[2023-03-26] MEDS ORDERED: SODIUM CHLORIDE 0.9% 1,000 ML IV SCH (14:00)
--- NOTE | 2023-03-26 15:55 | P.PN ---
Subjective Progress Note Date: 03/26/23 (delayed charting seen at approx 0930) Patient is a 47-year-old man with a history of cocaine abuse, hypertension, and nicotine dependency who presented to the ER from [place] due to fluid overload and dyspnea. In the ER he underwent extensive evaluation. Chest x-ray demonstrated mild congestive edema or pneumonia. He underwent CTA of the chest which showed pulmonary edema with pleural effusion and anasarc, no pulmonary embolism. CT abdomen and pelvis showed pericholecystic edema, periportal edema, and anasarca. Echocardiogram revealed an ejection fraction of 20% with global decreased contractility and moderate mitral and moderate to severe tricuspid regurgitation. Chest ultrasound revealed moderate right-sided pleural effusion and patient underwent thoracentesis with pulmonary on 03/22/2023 with removal of 1000 mL of fluid. He was continued on diuresis. He underwent cardiac catheter ization on 03/26/2023 which demonstrated triple-vessel disease with 90% stenosis in the LAD, 90% ostial diagonal, 90% ostial OM1, 100% RCA Patient seen and examined at bedside. He is feeling somewhat short of breath today. He denies any chest discomfort. He believes his edema is somewhat better. He is feeling anxious about his cardiac cath today. Vital signs reviewed General: Nontoxic, no distress, appears at stated age Cardiovascular: S1S2 reg, no murmur, positive posterior tibial pulse bilateral, Lungs: CTA bilateral, no rhonchi, no rales, no accessory muscle use Abdominal: Soft, nontender to palpation, no guarding, no appreciable organomegaly Ext: No gross muscle atrophy, 3+ edema b/l lower extremities, no contractures Neuro: CN II-XI grossly intact, no focal neuro deficits Psych: Alert, oriented, appropriate affect Assessment/Plan: Acute hypoxemic respiratory failure Acute systolic heart failure, ejection fraction 15-20% Moderate to severe tricuspid regurgitation Moderate right-sided pleural effusion -s/p thoracentesis on 03/22:, transudative Triple-vessel coronary artery disease Uncontrolled hypertension NSTEMI -Patient underwent cardiac cath which shows triple-vessel disease. -Pulmonology signed off on 03/24/2022 -Coreg 12.5 mg twice daily, Lasix 20 mg daily, lisinopril 20 mg daily, spironolactone lactone 25 mg daily, likely will add Jardiance on discharge -Catapres 0.1 mg patch -Strict ins and outs, daily weights -Await cardiothoracic recommendations Cocaine abuse -Cessation counseling -Clonidine patch -Symptomatically control with Zofran when necessary Imaging: None new Data Review: Labs reviewed from today include CBC, coags, and basic metabolic profile which are remarkable for sodium 136 DVT prophylaxis: Heparin SC Anticipated discharge date: Pending Clinical Course Anticipated discharge place: Pending Clinical Course This dictation was prepared using [employer] voice recognition software. Though every attempt is made to correct errors during dictation some may still exist. Objective - Vital Signs Vital signs: Vital Signs Temp 97.5 F L 03/26/23 12:00 Pulse 88 03/26/23 12:00 Resp 18 03/26/23 12:00 BP 154/102 03/26/23 12:00 Pulse Ox 100 03/26/23 12:00 FiO2 50 03/22/23 07:30 Intake & Output 03/25/23 03/26/23 03/26/23 18:59 06:59 18:59 Intake Total 1000 50 Output Total 800 1 Balance 200 -1 50 Weight 81.6 kg Intake: IV 50 Oral 1000 Output: Urine 800 1 Other: Voiding Method Indwelling Catheter Toilet Toilet # Voids 3 - Labs CBC & Chem 7: 03/26/23 10:35 03/26/23 10:35 Labs: Abnormal Lab Results - Last 24 Hours (Table) 03/26/23 03/26/23 Range/Units 10:35 10:35 Sodium 135 L 136 L (137-145) mmol/L Glucose 110 H 111 H (74-99) mg/dL Calcium 8.2 L 8.2 L (8.4-10.2) mg/dL Microbiology - Last 24 Hours (Table) 03/22/23 16:30 Gram Stain - Preliminary Pleural Fluid Body Fluid Culture - Preliminary 03/22/23 16:30 Acid Fast Bacilli Smear - Preliminary Pleural Fluid 03/22/23 05:40 Blood Culture - Preliminary Blood 03/22/23 05:25 Blood Culture - Preliminary Blood
[2023-03-27] MEDS: carvediloL 12.5 MG TAB PO SCH ×2 (05:21→16:56)
--- NOTE | 2023-03-27 07:11 | P.GSCN ---
History of Present Illness Consult date: 03/27/23 Reason for Consult: Multiple vessel coronary artery disease Requesting physician: Foster Corey History of present illness: This is a 47-year-old gentleman who does not follow with a primary care physician on a regular basis and is currently homeless. He is a past medical history significant for hypertension, chronic ongoing tobacco dependence smokes 1 pack of cigarettes per day, occasional EtOH use drinks 2-6 beers per week and has a history of drug abuse with crack/cocaine. He reports on , 03/21/2023 he checked into [facility] for substance abuse rehab, although due to severe shortness of breath, and diffuse anasarca he presented to the emergency department here at [facility]. He reports he has been having shortness of breath for the past 4-6 weeks, associated with nausea. He reports last time he used the crack cocaine was in between and . He denies any recent fever, chills, vomiting, hematemesis, hemoptysis, headache, chest pain/chest pressure, weight loss, constipation, diarrhea, presyncope or syncope. The patient was questioning whether his crack cocaine had been tainted with fentanyl. On admission his laboratory results showed a WBC count of 10.5, hemoglobin 55, hematocrit 48.0, PT 11.2, INR 1.0, PTT 24.7, d-dimer 1.15, sed rate 54, sodium 133, potassium 3.7, chloride 102, CO2 21, BUN 22, creatinine 1.08, glucose 107, plastic lactic acid venous 1.3, calcium 8.2, phosphorus 4.0, magnesium 2.0, AST 89, ALT 173, alkaline phosphatase 380, serial troponins were positive as high as 0.117, and proBNP was 15,200. Urine drug screen showed positive for opiates. An ABG was completed which showed a pH of 7.41, pCO2 32, pO2 47, HCO3 20, oxygen saturation 80.7, and base excess -4.9 on FiO2 of 24%. A 12-lead EKG was completed which showed sinus tachycardia, with left atrial enlargement and left ventricular hypertrophy with ST depression in V5 and V6 heart rate of 111 BPM. Subsequently, due to the patient's presenting symptoms and elevated troponins cardiology was consulted. A transthoracic 2-D echocardiogram was completed which showed a normal LV size, mild to moderate concentric left ventricular hypertrophy, left ventricular ejection fraction estimated at 15-20%, moderate mitral valve regurgitation, mild to moderate aortic valve calcification with trace aortic valve insufficiency, moderate to severe tricuspid valve regurgitation, normal pericardium and normal size aortic root and proximal ascending aorta. A chest x-ray was completed which showed findings likely representing mild congestive edema and/or unusual pneumonia. For further evaluation and a CT angiographically chest with intravenous contrast was completed which demonstrated no acute pulmonary embolus seen, probable pulmonary edema and pleural effusions with basilar atelectasis and/or pneumonia with parapneumonic effusion, and probable mild anasarca. Due to the findings of congestive heart failure and right-sided pleural effusion the patient underwent a right-sided thoracentesis on 03/22/[address] Jean Baptiste from pulmonary critical care medicine with 1000 mL of slightly serosanguineous fluid drained from the right pleural space. Due to the patient's elevated troponins the patient was recommended to undergo a cardiac catheterization which was completed yesterday April [address] Corey from cardiology which demonstrated a 90% stenosis to his mid left anterior descending coronary artery, a 90% stenosis to his ostial diagonal 2 coronary artery, a 90% ostial stenosis to his obtuse marginal #1 coronary artery, 100% stenosis to his right coronary artery with [id number] collaterals, and elevated left-sided filling pressures. Subsequ ently, due to the findings on the cardiac catheterization a consult was placed to cardiothoracic surgery for further evaluation and treatment recommendations. Review of Systems A 14 point review of systems was completed and was negative except as mentioned in the HPI. Past Medical History Past Medical History: Hypertension History of Any Multi-Drug Resistant Organisms: None Reported Past Surgical History: No Surgical Hx Reported Past Anesthesia/Blood Transfusion Reactions: No Reported Reaction Past Psychological History: No Psychological Hx Reported Smoking Status: Current some day smoker (Smokes 1 pack of cigarettes per day) Past Alcohol Use History: Occasional (Reports drinks 2-6 beers per week) Past Drug Use History: Cocaine (Admits to using crack cocaine), IV Drug Use - Past Family History Mother Family Medical History: Diabetes Mellitus, Hypertension Father History Unknown: Yes Medications and Allergies Home Medications Medication Instructions Recorded Confirmed Type Albuterol Nebulized [Ventolin 2.5 mg INHALATION RT-Q6H PRN 03/22/23 03/22/23 History Nebulized] Albuterol Sulfate [Albuterol 1 - 2 puff PO RT-Q4H PRN 03/22/23 03/22/23 History Sulfate Hfa] Allergies Allergy/AdvReac Type Severity Reaction Status Date / Time No Known Allergies Allergy Verified 03/22/23 07:51 Surgical - Exam Vital Signs Temp Pulse Resp BP Pulse Ox 98.7 F 115 H 28 H 186/156 96 03/22/23 00:24 03/22/23 00:24 03/22/23 00:24 03/22/23 00:24 03/22/23 00:24 - General Sitting up to bedside chair, appears in no acute apparent distress and resting comfortably. well developed, well nourished, no distress, no pain - Eyes PERRL, normal ocular movement, no pale, no icteric - ENT normal pinna, normal nares, normal mucosa, no hearing loss, no congestion, poor longterm - Neck Neck is supple, no lymphadenopathy. no masses, no bruits, trachea midline, no venous distension - Respiratory Lungs sounds essentially clear throughout, few scattered crackles to his bilateral bases. Respirations are symmetrical and nonlabored. No wheezes or rhonchi present. - Cardiovascular Regular rhythm and rate. S1 and S2 present, negative for S3, gallop or murmur. Pitting edema present to his bilateral lower extremities. - Abdomen Abdomen is soft, nontender and nondistended. Active bowel sounds present in all 4 abdominal quadrants. No guarding or rigidity. No organomegaly appreciated. - Genitourinary Deferred - Rectum Deferred - Integumentary Skin is warm and dry. No clubbing or cyanosis is present. no rash, no growths, no abnormal pigmentation - Neurologic No focal deficits. normal coordination - Musculoskeletal Moves all 4 extremities with equal strength bilateral. - Psychiatric oriented to time, oriented to person, oriented to place, speech is normal, anand ry intact Results - Labs 03/27/23 09:34 03/27/23 09:34 Abnormal Lab Results - Last 24 Hours (Table) 03/26/23 03/26/23 Range/Units 10:35 10:35 Sodium 135 L 136 L (137-145) mmol/L Glucose 110 H 111 H (74-99) mg/dL Calcium 8.2 L 8.2 L (8.4-10.2) mg/dL Microbiology - Last 24 Hours (Table) 03/22/23 16:30 Gram Stain - Final Pleural Fluid Body Fluid Culture - Final Diabetes panel 03/26/23 03/26/23 Range/Units 10:35 10:35 Sodium 135 L 136 L (137-145) mmol/L Potassium 4.6 4.5 (3.5-5.1) mmol/L Chloride 101 101 (98-107) mmol/L Carbon Dioxide 27 27 (22-30) mmol/L BUN 18 17 (9-20) mg/dL Creatinine 1.09 1.14 (0.66-1.25) mg/dL Glucose 110 H 111 H (74-99) mg/dL Calcium 8.2 L 8.2 L (8.4-10.2) mg/dL Calcium panel 03/26/23 03/26/23 Range/Units 10:35 10:35 Calcium 8.2 L 8.2 L (8.4-10.2) mg/dL Pituitary panel 03/26/23 03/26/23 Range/Units 10:35 10:35 Sodium 135 L 136 L (137-145) mmol/L Potassium 4.6 4.5 (3.5-5.1) mmol/L Chloride 101 101 (98-107) mmol/L Carbon Dioxide 27 27 (22-30) mmol/L BUN 18 17 (9-20) mg/dL Creatinine 1.09 1.14 (0.66-1.25) mg/dL Glucose 110 H 111 H (74-99) mg/dL Calcium 8.2 L 8.2 L (8.4-10.2) mg/dL Adrenal panel 03/26/23 03/26/23 Range/Units 10:35 10:35 Sodium 135 L 136 L (137-145) mmol/L Potassium 4.6 4.5 (3.5-5.1) mmol/L Chloride 101 101 (98-107) mmol/L Carbon Dioxide 27 27 (22-30) mmol/L BUN 18 17 (9-20) mg/dL Creatinine 1.09 1.14 (0.66-1.25) mg/dL Glucose 110 H 111 H (74-99) mg/dL Calcium 8.2 L 8.2 L (8.4-10.2) mg/dL - Imaging Chest x-ray: report reviewed CT scan - chest: report reviewed EKG: image reviewed Additional studies: Report of cardiac catheterization and transthoracic 2-D echocardiogram reviewed Assessment and Plan Assessment: Multivessel coronary artery disease Acute systolic heart failure, proBNP on admission was 15,600, Acute hypoxic respiratory failure Severe cardiomyopathy, ejection fraction on transthoracic 2-D echocardiogram 15- 20% Valvular disease with moderate mitral valve regurgitation, moderate to severe tricuspid valve regurgitation Hypertension Crack cocaine abuse Chronic ongoing tobacco abuse ADDENDUM: Patient examined, chart reviewed, cath films reviewed, echo reviewed. Patient is best served by surgical revascularization of his coronary arteries but is currently very high risk due to severe LV dysfunction and decompensated heart failure. Case was discussed with Dr Corey and Dr Moraes from cardiology. Plan at this time is to treat him medicall and try to improve his heart failure over the next few weeks to months.. Discussed with patient above plan and importance of compliance with medical regimen as well as necessity to improve his lifestyle, particularly his substance abuse if he is going to be considered as a candidate for heart surgery. He states his understanding and willingness to comply. We will follow up with him in 1-2 months. Medical management in interim. Plan: The patient was seen and examined at his bedside on the third floor cardiac stepdown unit. His chart diagnostics were reviewed. This case was discussed in detail with Dr. Marcos Bethea from cardiothoracic surgery. We'll be seen and evaluated by cardiothoracic surgeon today with further treatment recommendations to follow. Discussed in detail the importance of the patient to sustain from smoking and drug use and lifestyle changes. Continue to maximize medical management. Medical management and other comorbidities per primary care service and other consultants. More recommendations follow based on patient's clinical course. Thank you Dr. Corey for this consult and we look forward to working with you in the care of this patient. I have personally seen and examined the patient, performed the documentation and the assessment and plan as written. 30minutes spent on the visit . Vu TOBIN
[2023-03-27] MEDS ORDERED: carvediloL 12.5 MG TAB PO STA (09:44)
[2023-03-27 09:52] LABS: HCT 46.2 % (39.0-53.0); HGB 14.6 gm/dL (13.0-17.5); Hypochromasia Moderate; MCH 29.5 pg (25.0-35.0); MCHC 31.7 g/dL (31.0-37.0); MCV 93.2 fL (80.0-100.0); Mean Platelet Volume 13.2; Platelet Count 151 k/uL (150-450); RBC 4.95 m/uL (4.30-5.90); RDW 14.6 % (11.5-15.5); WBC 11.7 k/uL (3.8-10.6)
[2023-03-27] MEDS: lisinopriL 20 MG TAB PO SCH (09:58)
[2023-03-27] MEDS: SPIRONOLACTONE 25 MG TAB PO SCH (09:58)
[2023-03-27] MEDS: ASPIRIN 81 MG PO SCH (09:58)
[2023-03-27 10:09] LABS: African American GFR (CKD) 78 (>60 ml/min/1.73 sqM); Anion Gap 9 mmol/L; Blood Urea Nitrogen 29 mg/dL (9-20); Calcium 7.9 mg/dL (8.4-10.2); Carbon Dioxide 19 mmol/L (22-30); Chloride 104 mmol/L (98-107); Glucose 181 mg/dL (74-99); Non-African American GFR(CKD) 68 (>60 ml/min/1.73 sqM); Potassium 4.1 mmol/L (3.5-5.1); Sodium 132 mmol/L (137-145)
[2023-03-27] MEDS: FUROSEMIDE 20 MG TAB PO SCH ×2 (10:42→16:56)
--- NOTE | 2023-03-27 11:19 | P.PN ---
Subjective Progress Note Date: 03/27/23 Patient is a 47-year-old man with a history of cocaine abuse, hypertension, and nicotine dependency who presented to the ER from [place] due to fluid overload and dyspnea. In the ER he underwent extensive evaluation. Chest x-ray demonstrated mild congestive edema or pneumonia. He underwent CTA of the chest which showed pulmonary edema with pleural effusion and anasarc, no pulmonary embolism. CT abdomen and pelvis showed pericholecystic edema, periportal edema, and anasarca. Echocardiogram revealed an ejection fraction of 20% with global decreased contractility and moderate mitral and moderate to severe tricuspid regurgitation. Chest ultrasound revealed moderate right-sided pleural effusion and patient underwent thoracentesis with pulmonary on 03/22/2023 with removal of 1000 mL of fluid. He was continued on diuresis. He underwent cardiac catheterization on 03/26/2023 which demonstrated triple-vessel disease with 90% stenosis in the LAD, 90% ostial diagonal, 90% ostial OM1, 100% RCA Patient seen and examined at bedside. He is resting comfortably. His breathing is somewhat better than yesterday. He is aware that he had multiple blood vessels with coronary artery disease on his cath. Vital signs reviewed General: Nontoxic, no distress, appears at stated age Cardiovascular: S1S2 reg, no murmur, positive posterior tibial pulse bilateral, Lungs: Decreased bs bilateral, no rhonchi, no rales, no accessory muscle use Abdominal: Soft, nontender to palpation, no guarding, no appreciable organomegaly Ext: No gross muscle atrophy, 2+ edema b/l lower extremities, no contractures Neuro: CN II-XI grossly intact, no focal neuro deficits Psych: Alert, oriented, appropriate affect Assessment/Plan: Acute hypoxemic respiratory failure Acute systolic heart failure, ejection fraction 15-20% Moderate to severe tricuspid regurgitation Moderate right-sided pleural effusion -s/p thoracentesis on 03/22: transudative Triple-vessel coronary artery disease Uncontrolled hypertension NSTEMI -Patient underwent cardiac cath which shows triple-vessel disease. -Pulmonology signed off on 03/24/2022 -Case discussed with cardiothoracic team. They are recommending conservative medical management at this time with possible reevaluation for coronary artery bypass grafting in the next several months if he is able to abstain from drugs and alcohol. -Lipitor 80 mg daily, Coreg 25 mg twice daily, lisinopril 20 mg daily, spironolactone 25 mg daily -With patient's potassium in the normal range and stable renal function could consider Entresto. Will start Farxiga 10 mg daily -Catapres 0.1 mg patch -Strict ins and outs, daily weights Hyponatremia, suspect secondary to diuretic use -Has been transition from IV to oral diuretics -Will repeat sodium levels in a.m. Cocaine abuse -Cessation counseling -Clonidine patch -Symptomatically control with Zofran when necessary Imaging: None new Data Review: Labs reviewed from today include CBC, coags, and basic metabolic profile which are remarkable for sodium 136 DVT prophylaxis: Heparin SC Anticipated discharge date: in 24-[address]: Return to [place] This dictation was prepared using [employer] voice recognition software. Though every attempt is made to correct errors during dictation some may still exist. Objective - Vital Signs Vital signs: Vital Signs Temp 97.4 F L 03/27/23 04:00 Pulse 80 03/27/23 09:54 Resp 16 03/27/23 09:54 BP 169/90 03/27/23 09:54 Pulse Ox 98 03/27/23 09:54 FiO2 50 03/22/23 07:30 Intake & Output 03/26/23 03/27/23 03/27/23 18:59 06:59 18:59 Intake Total 500 180 Balance 500 180 Weight 82.4 kg Intake: IV 50 Intake, IV Titration 450 Amount Sodium Chloride 0.9% 1, 450 000 ml @ 75 mls/hr IV . [id number] [facility] Rx#:[id number] Oral 180 Other: Voiding Method Toilet Toilet Toilet # Voids 4 2 - Labs CBC & Chem 7: 03/27/23 09:34 03/27/23 09:34 Labs: Abnormal Lab Results - Last 24 Hours (Table) 03/26/23 03/26/23 03/27/23 Range/Units 10:35 10:35 09:34 WBC 11.7 H (3.8-10.6) k/uL Sodium 135 L 136 L (137-145) mmol/L Carbon Dioxide (22-30) mmol/L BUN (9-20) mg/dL Glucose 110 H 111 H (74-99) mg/dL Calcium 8.2 L 8.2 L (8.4-10.2) mg/dL 03/27/23 Range/Units 09:34 WBC (3.8-10.6) k/uL Sodium 132 L (137-145) mmol/L Carbon Dioxide 19 L (22-30) mmol/L BUN 29 H (9-20) mg/dL Glucose 181 H (74-99) mg/dL Calcium 7.9 L (8.4-10.2) mg/dL Microbiology - Last 24 Hours (Table) 03/22/23 16:30 Gram Stain - Final Pleural Fluid Body Fluid Culture - Final
--- NOTE | 2023-03-27 12:54 | P.PN ---
Subjective HISTORY OF PRESENT ILLNESS: Patient is status post cardiac catheterization revealing 90% mid LAD, 90% ostial diagonal 2, 90% ostial OM1, 100% RCA with [id number] collaterals, and elevated left-sided filling pressures. Patient was evaluated by cardiothoracic surgery and deemed to be high risk. Plan from their standpoint is to treat him medically, avoid drug use, and then reevaluate patient for possible CABG in the future. Patient examined this morning at the bedside. Patient denies having any chest pain or pressure. He denies any shortness of breath. Vital signs are stable. Blood pressure slightly high this morning with a reading of 153/98. PHYSICAL EXAM: VITAL SIGNS: Reviewed. GENERAL: Well-developed in no acute distress. NECK: Supple. No JVD or thyromegaly LUNGS: Respirations even and unlabored. Lungs essentially clear to auscultation bilaterally. HEART: Regular rate and rhythm. S1 and S2 heard. EXTREMITIES: Normal range of motion. No clubbing or cyanosis. Peripheral pulse s intact. No lower extremity edema ASSESSMENT: NSTEMI, status post cardiac catheterization revealing triple vessel disease Acute heart failure with reduced ejection fraction, 15-20%, currently euvolemic Valvular heart disease Moderate right-sided pleural effusion status post thoracentesis Hypertension History of crack cocaine use Nicotine dependence PLAN: Continue current cardiac medications Increase carvedilol to 25 mg twice a day Add aspirin and atorvastatin Patient has been started on Farxiga and oral Lasix per internal medicine Recommend abstinence from drugs, alcohol, and nicotine Dr. Moraes spoke to the patient in detail this morning regarding his cardiac catheterization and plans moving forward. No plans for PCI per Dr. Moraes. Patient would ideally benefit from CABG. He has been evaluated by CT surgery. CT surgery's plans are to continue with conservative management at this time and avoid any alcohol or drugs and reevaluate patient for CABG in the future. Dr. Moraes did discuss option for patient to receive a second opinion at a [facility] Further recommendations pending patient's course Nurse practitioner note has been reviewed by physician. Signing provider agrees with the documented findings, assessment, and plan of care. Objective - Vital Signs Vital signs: Vital Signs Temp 97.4 F L 03/27/23 04:00 Pulse 97 03/27/23 12:00 Resp 17 03/27/23 12:00 BP 153/98 03/27/23 12:00 Pulse Ox 99 03/27/23 12:00 FiO2 50 03/22/23 07:30 Intake & Output 03/26/23 03/27/23 03/27/23 18:59 06:59 18:59 Intake Total 500 180 Balance 500 180 Weight 82.4 kg Intake: IV 50 Intake, IV Titration 450 Amount Sodium Chloride 0.9% 1, 450 000 ml @ 75 mls/hr IV . [id number] [facility] Rx#:[id number] Oral 180 Other: Voiding Method Toilet Toilet Toilet # Voids 4 2 - Labs CBC & Chem 7: 03/27/23 09:34 03/27/23 09:34 Labs: Abnormal Lab Results - Last 24 Hours (Table) 03/27/23 03/27/23 Range/Units 09:34 09:34 WBC 11.7 H (3.8-10.6) k/uL Sodium 132 L (137-145) mmol/L Carbon Dioxide 19 L (22-30) mmol/L BUN 29 H (9-20) mg/dL Glucose 181 H (74-99) mg/dL Calcium 7.9 L (8.4-10.2) mg/dL Microbiology - Last 24 Hours (Table) 03/22/23 16:30 Gram Stain - Final Pleural Fluid Body Fluid Culture - Final
[2023-03-27] MEDS: DAPAGLIFLOZIN PROPANEDIOL 10 MG TABLET PO SCH (13:00)
[2023-03-27] MEDS: ATORVASTATIN 80 MG TAB PO SCH (20:27)
[2023-03-28] MEDS: carvediloL 12.5 MG TAB PO SCH ×2 (05:11→17:07)
[2023-03-28 07:42] LABS: HCT 45.3 % (39.0-53.0); HGB 14.1 gm/dL (13.0-17.5); Hypochromasia Moderate; MCH 28.9 pg (25.0-35.0); MCV 93.2 fL (80.0-100.0); Mean Platelet Volume 12.5; Platelet Count 123 k/uL (150-450); RBC 4.86 m/uL (4.30-5.90); RDW 14.5 % (11.5-15.5); WBC 9.6 k/uL (3.8-10.6)
[2023-03-28 08:02] LABS: ALT 182 U/L (4-49); AST 81 U/L (17-59); African American GFR (CKD) >90 (>60 ml/min/1.73 sqM); Albumin 2.6 g/dL (3.5-5.0); Alkaline Phosphatase 211 U/L (38-126); Anion Gap 8 mmol/L; Blood Urea Nitrogen 22 mg/dL (9-20); Carbon Dioxide 21 mmol/L (22-30); Chloride 104 mmol/L (98-107); Glucose 114 mg/dL (74-99); Non-African American GFR(CKD) 80 (>60 ml/min/1.73 sqM); Potassium 4.3 mmol/L (3.5-5.1); Sodium 133 mmol/L (137-145); Total Bilirubin 0.4 mg/dL (0.2-1.3)
[2023-03-28] MEDS: ASPIRIN 81 MG PO SCH (08:16)
[2023-03-28] MEDS: SPIRONOLACTONE 25 MG TAB PO SCH (08:16)
[2023-03-28] MEDS: lisinopriL 20 MG TAB PO SCH ×2 (08:16→20:25)
[2023-03-28] MEDS: DAPAGLIFLOZIN PROPANEDIOL 10 MG TABLET PO SCH (08:16)
[2023-03-28] MEDS: FUROSEMIDE 20 MG TAB PO SCH ×2 (08:16→17:07)
[2023-03-28 11:40] VITALS: BMI 25.5
--- NOTE | 2023-03-28 14:01 | P.PN ---
Subjective HISTORY OF PRESENT ILLNESS: Patient is status post cardiac catheterization revealing 90% mid LAD, 90% ostial diagonal 2, 90% ostial OM1, 100% RCA with [id number] collaterals, and elevated left-sided filling pressures. Patient was evaluated by cardiothoracic surgery and deemed to be high risk. Plan from their standpoint is to treat him medically, avoid drug use, and then reevaluate patient for possible CABG in the future. Patient examined this morning at the bedside. Patient denies having any chest pain or pressure. He denies any shortness of breath. Vital signs are stable. Blood pressure slightly high this morning with a reading of 153/98. 03/28/2023 Patient examined this morning. He is sitting up in the chair. He denies chest pain or pressure. He denies shortness of breath. Blood pressure remains e levated with a systolic around 150. PHYSICAL EXAM: VITAL SIGNS: Reviewed. GENERAL: Well-developed in no acute distress. NECK: Supple. No JVD or thyromegaly LUNGS: Respirations even and unlabored. Lungs essentially clear to auscultation bilaterally. HEART: Regular rate and rhythm. S1 and S2 heard. EXTREMITIES: Normal range of motion. No clubbing or cyanosis. Peripheral pu lses intact. No lower extremity edema ASSESSMENT: NSTEMI, status post cardiac catheterization revealing triple vessel disease Acute heart failure with reduced ejection fraction, 15-20%, currently euvolemic Valvular heart disease Moderate right-sided pleural effusion status post thoracentesis Hypertension History of crack cocaine use Nicotine dependence PLAN: 03/27/2023 Dr. Moraes spoke to the patient in detail this morning regarding his cardiac catheterization and plans moving forward. No plans for PCI per Dr. Moraes. Patient would ideally benefit from CABG. He has been evaluated by CT surgery. CT surgery's plans are to continue with conservative management at this time and avoid any alcohol or drugs and reevaluate patient for CABG in the future. Dr. Moraes did discuss option for patient to receive a second opinion at a tertiary care center 03/28/2023 Continue current cardiac medications Increase lisinopril to 20 mg twice a day for optimal blood pressure control Yesterday Dr Moraes spoke to the patient regarding obtaining a second opinion at a tertiary care center and he was agreeable at that time. Apparently, he spoke with the CT surgery team yesterday evening and now he is agreeable to proceed with their original plan. The patient does not want to be transferred to a tertiary care center for evaluation. The patient may be discharged back to [place] today from a cardiac standpoint Nurse practitioner note has been reviewed by physician. Signing provider agrees with the documented findings, assessment, and plan of care. Objective - Vital Signs Vital signs: Vital Signs Temp 98.0 F 03/28/23 08:12 Pulse 78 03/28/23 11:27 Resp 17 03/28/23 11:27 BP 144/84 03/28/23 11:27 Pulse Ox 98 03/28/23 11:27 FiO2 50 03/22/23 07:30 Intake & Output 03/27/23 03/28/23 03/28/23 18:59 06:59 18:59 Intake Total 1440 938 Balance 1440 938 Weight 80.8 kg 80.8 kg Intake: Oral 1440 938 Other: Voiding Method Toilet Toilet Toilet # Voids 1 1 - Labs CBC & Chem 7: 03/28/23 06:52 03/28/23 06:52 Labs: Abnormal Lab Results - Last 24 Hours (Table) 03/28/23 03/28/23 Range/Units 06:52 06:52 Plt Count 123 L (150-450) k/uL Sodium 133 L (137-145) mmol/L Carbon Dioxide 21 L (22-30) mmol/L BUN 22 H (9-20) mg/dL Glucose 114 H (74-99) mg/dL Calcium 8.0 L (8.4-10.2) mg/dL AST 81 H (17-59) U/L ALT 182 H (4-49) U/L Alkaline Phosphatase 211 H (38-126) U/L Total Protein 6.0 L (6.3-8.2) g/dL Albumin 2.6 L (3.5-5.0) g/dL Microbiology - Last 24 Hours (Table) 03/22/23 05:40 Blood Culture - Final Blood 03/22/23 05:25 Blood Culture - Final Blood
--- NOTE | 2023-03-28 15:19 | P.PN ---
Subjective Progress Note Date: 03/28/23 (delayed charting seen at 0930) Patient is a 47-year-old man with a history of cocaine abuse, hypertension, and nicotine dependency who presented to the ER from [place] due to fluid overload and dyspnea. In the ER he underwent extensive evaluation. Chest x-ray demonstrated mild congestive edema or pneumonia. He underwent CTA of the chest which showed pulmonary edema with pleural effusion and anasarc, no pulmonary embolism. CT abdomen and pelvis showed pericholecystic edema, periportal edema, and anasarca. Echocardiogram revealed an ejection fraction of 20% with global decreased contractility and moderate mitral and moderate to severe tricuspid regurgitation. Chest ultrasound revealed moderate right-sided pleural effusion and patient underwent thoracentesis with pulmonary on 03/22/2023 with removal of 1000 mL of fluid. He was continued on diuresis. He underwent cardiac catheterization on 03/26/2023 which demonstrated triple-vessel disease with 90% stenosis in the LAD, 90% ostial diagonal, 90% ostial OM1, 100% RCA. He was seen by cardiothoracic surgery who felt that he was too high risk to proceed with surgery at this time but should work for the next several months on increasing his endurance and taking all his medications. They will then reevaluate. Patient's fluid status continued to improve. Patient Seen and examined at bedside. We had a long discussion about the infor mation he received yesterday. He is now in agreement with plan of care to try to abstain from drugs and alcohol, take all of his medications, and let his heart strength and for several months before proceeding with surgery. He is overall feeling better than yesterday. He is very determined to stop any illicit drug use and continue to improve. Vital signs reviewed General: Nontoxic, no distress, appears at stated age Cardiovascular: S1S2 reg, no murmur, positive posterior tibial pulse bilateral, Lungs: Decreased bs bilateral, no rhonchi, no rales, no accessory muscle use Abdominal: Soft, nontender to palpation, no guarding, no appreciable organomegaly Ext: No gross muscle atrophy, 2+ edema b/l lower extremities, no contractures Neuro: CN II-XI grossly intact, no focal neuro deficits Psych: Alert, oriented, appropriate affect Assessment/Plan: Acute hypoxemic respiratory failure, resolved Acute systolic heart failure, ejection fraction 15-20% Moderate to severe tricuspid regurgitation Moderate right-sided pleural effusion -s/p thoracentesis on 03/22: transudative Triple-vessel coronary artery disease Uncontrolled hypertension NSTEMI -Patient underwent cardiac cath which shows triple-vessel disease. -Case discussed with cardiology. Patient is cleared for discharge -Case discussed with cardiothoracic surgery, they will see him after he has followed with cardiology in the clinic. -Pulmonology signed off on 03/24/2022 -Lipitor 80 mg daily, Coreg 25 mg twice daily, lisinopril 20 mg twice daily, spironolactone 25 mg daily -Unfortunately unable to start Jardiance or Entresto as patient does not have insurance. -Catapres 0.1 mg patch -Strict ins and outs, daily weights Hyponatremia, suspect secondary to diuretic use - improving, repeat in AM Cocaine abuse -Cessation counseling -Clonidine patch -Symptomatically control with Zofran when necessary Imaging: None new Data Review: Labs reviewed from today include CBC and CMP which are remarkable for platelets 123, sodium 133, BUN 22, AST 81, ALT 182, and alkaline phosphatase of 211. DVT prophylaxis: Heparin SC Anticipated discharge date: late tomorrow afternoon Anticipated discharge place: to care of daughter [facility] 03/30 at 1200 This dictation was prepared using [employer] voice recognition software. Though every attempt is made to correct errors during dictation some may still exist. Objective - Vital Signs Vital signs: Vital Signs Temp 98.0 F 03/28/23 08:12 Pulse 78 03/28/23 11:27 Resp 17 03/28/23 11:27 BP 144/84 03/28/23 11:27 Pulse Ox 98 03/28/23 11:27 FiO2 50 03/22/23 07:30 Intake & Output 03/27/23 03/28/23 03/28/23 18:59 06:59 18:59 Intake Total 1440 938 Balance 1440 938 Weight 80.8 kg 80.8 kg Intake: Oral 1440 938 Other: Voiding Method Toilet Toilet Toilet # Voids 1 1 - Labs CBC & Chem 7: 03/28/23 06:52 03/28/23 06:52 Labs: Abnormal Lab Results - Last 24 Hours (Table) 03/28/23 03/28/23 Range/Units 06:52 06:52 Plt Count 123 L (150-450) k/uL Sodium 133 L (137-145) mmol/L Carbon Dioxide 21 L (22-30) mmol/L BUN 22 H (9-20) mg/dL Glucose 114 H (74-99) mg/dL Calcium 8.0 L (8.4-10.2) mg/dL AST 81 H (17-59) U/L ALT 182 H (4-49) U/L Alkaline Phosphatase 211 H (38-126) U/L Total Protein 6.0 L (6.3-8.2) g/dL Albumin 2.6 L (3.5-5.0) g/dL Microbiology - Last 24 Hours (Table) 03/22/23 05:40 Blood Culture - Final Blood 03/22/23 05:25 Blood Culture - Final Blood
[2023-03-28 17:03] VITALS: RESP 16
[2023-03-28] MEDS: ATORVASTATIN 80 MG TAB PO SCH (20:25)
[2023-03-29] MEDS: carvediloL 12.5 MG TAB PO SCH (06:05)
[2023-03-29 08:11] LABS: HCT 48.1 % (39.0-53.0); HGB 14.9 gm/dL (13.0-17.5); Hypochromasia Moderate; MCH 28.6 pg (25.0-35.0); MCHC 30.9 g/dL (31.0-37.0); MCV 92.4 fL (80.0-100.0); Mean Platelet Volume 13.2; Platelet Count 166 k/uL (150-450); RDW 14.6 % (11.5-15.5); WBC 10.4 k/uL (3.8-10.6)
[2023-03-29 08:26] LABS: African American GFR (CKD) >90 (>60 ml/min/1.73 sqM); Anion Gap 11 mmol/L; Blood Urea Nitrogen 28 mg/dL (9-20); Calcium 8.6 mg/dL (8.4-10.2); Carbon Dioxide 19 mmol/L (22-30); Chloride 102 mmol/L (98-107); Glucose 103 mg/dL (74-99); Non-African American GFR(CKD) 79 (>60 ml/min/1.73 sqM); Potassium 4.9 mmol/L (3.5-5.1); Sodium 132 mmol/L (137-145)
[2023-03-29] MEDS: SPIRONOLACTONE 25 MG TAB PO SCH (08:52)
[2023-03-29] MEDS: FUROSEMIDE 20 MG TAB PO SCH (08:52)
[2023-03-29] MEDS: ASPIRIN 81 MG PO SCH (08:53)
[2023-03-29] MEDS: lisinopriL 20 MG TAB PO SCH (08:53)
[2023-03-29] MEDS: DAPAGLIFLOZIN PROPANEDIOL 10 MG TABLET PO SCH (08:53)
[2023-03-29 09:03] VITALS: BP 150/87; TEMP 97.7
[2023-03-29 10:15] VITALS: PULSE 85
--- NOTE | 2023-03-29 12:15 | P.PN ---
Subjective HISTORY OF PRESENT ILLNESS: Patient is status post cardiac catheterization revealing 90% mid LAD, 90% ostial diagonal 2, 90% ostial OM1, 100% RCA with [id number] collaterals, and elevated left-sided filling pressures. Patient was evaluated by cardiothoracic surgery and deemed to be high risk. Plan from their standpoint is to treat him medically, avoid drug use, and then reevaluate patient for possible CABG in the future. Patient examined this morning at the bedside. Patient denies having any chest pain or pressure. He denies any shortness of breath. Vital signs are stable. Blood pressure slightly high this morning with a reading of 153/98. 03/28/2023 Patient examined this morning. He is sitting up in the chair. He denies chest pain or pressure. He denies shortness of breath. Blood pressure remains e levated with a systolic around 150. 03/29/2023 Patient examined this morning. Patient is sitting up in the chair. He denies chest pain or pressure. He denies shortness of breath. Vital signs are stable. PHYSICAL EXAM: VITAL SIGNS: Reviewed. GENERAL: Well-developed in no acute distress. NECK: Supple. No JVD or thyromegaly LUNGS: Respirations even and unlabored. Lungs essentially clear to auscultation bilaterally. HEART: Regular rate and rhythm. S1 and S2 heard. EXTREMITIES: Normal range of motion. No clubbing or cyanosis. Peripheral pulses intact. No lower extremity edema ASSESSMENT: NSTEMI, status post cardiac catheterization revealing triple vessel disease Acute heart failure with reduced ejection fraction, 15-20%, currently euvolemic Valvular heart disease Moderate right-sided pleural effusion status post thoracentesis Hypertension History of crack cocaine use Nicotine dependence PLAN: 03/27/2023 Dr. Moraes spoke to the patient in detail this morning regarding his cardiac catheterization and plans moving forward. No plans for PCI per Dr. Moraes. Patient would ideally benefit from CABG. He has been evaluated by CT surgery. CT surgery's plans are to continue with conservative management at this time and avoid any alcohol or drugs and reevaluate patient for CABG in the future. Dr. Moraes did discuss option for patient to receive a second opinion at a tertiary care center 03/28/2023 Continue current cardiac medications Increase lisinopril to 20 mg twice a day for optimal blood pressure control Yesterday Dr Moraes spoke to the patient regarding obtaining a second opinion at a tertiary care center and he was agreeable at that time. Apparently, he spoke with the CT surgery team yesterday evening and now he is agreeable to proceed with their original plan. The patient does not want to be transferred to a tertiary care center for evaluation. The patient may be discharged back to [facility] today from a cardiac standpoint 03/29/2023 Continue current cardiac medications Patient is stable for discharge today from a cardiac standpoint He is to follow up post discharge in the office Nurse practitioner note has been reviewed by physician. Signing provider agrees with the documented findings, assessment, and plan of care. Objective - Vital Signs Vital signs: Vital Signs Temp 97.7 F 03/29/23 08:00 Pulse 85 03/29/23 08:00 Resp 16 03/29/23 08:00 BP 150/87 03/29/23 08:00 Pulse Ox 100 03/29/23 08:00 FiO2 50 03/22/23 07:30 Intake & Output 03/28/23 03/29/23 03/29/23 18:59 06:59 18:59 Intake Total 1538 0 Balance 1538 0 Weight 80.8 kg 79.4 kg Intake: Oral 1538 0 Other: Voiding Method Toilet Toilet Toilet # Voids 1 4 - Labs CBC & Chem 7: 03/29/23 07:25 03/29/23 07:25 Labs: Abnormal Lab Results - Last 24 Hours (Table) 03/29/23 03/29/23 Range/Units 07:25 07:25 MCHC 30.9 L (31.0-37.0) g/dL Sodium 132 L (137-145) mmol/L Carbon Dioxide 19 L (22-30) mmol/L BUN 28 H (9-20) mg/dL Glucose 103 H (74-99) mg/dL
--- NOTE | 2023-03-29 14:42 | P.DS ---
Providers Date of admission: 03/22/23 06:24 Expected date of discharge: 03/29/23 Attending physician: Lai Avina MD Consults: 03/22/23 06:24 Consult Physician Routine Consulting Provider: Gaye Jean Baptiste Consult Reason/Comments: hypoxia Do you want consulting provider notified?: Yes Consult Physician Routine Consulting Provider: Mickey Donnelly Consult Reason/Comments: pulmEdema Do you want consulting provider notified?: Yes 03/26/23 13:53 Consult Physician Routine Consulting Provider: Marcos Bethea Consult Reason/Comments: 3 vessel disease cardiomyopathy 20% ef Do you want consulting provider notified?: Yes Primary care physician: Stated None Hospital Course: Discharge Diagnosis: Acute hypoxemic respiratory failure, resolved Acute systolic heart failure, ejection fraction 15-20% Moderate to severe tricuspid regurgitation Moderate right-sided pleural effusion -s/p thoracentesis on 03/22: transudative Triple-vessel coronary artery disease Uncontrolled hypertension NSTEMI Hyponatremia, suspect secondary to diuretic use Cocaine abuse Transaminitis due to hepatic congestion and ETOH use Hospital Course: Patient is a 47-year-old man with a history of cocaine abuse, hypertension, and nicotine dependency who presented to the ER from [place] due to fluid overload and dyspnea. In the ER he underwent extensive evaluation. Chest x-ray demonstrated mild congestive edema or pneumonia. He underwent CTA of the chest which showed pulmonary edema with pleural effusion and anasarc, no pulmonary embolism. CT abdomen and pelvis showed pericholecystic edema, periportal edema, and anasarca. Echocardiogram revealed an ejection fraction of 20% with global decreased contractility and moderate mitral and moderate to severe tricuspid regurgitation. Chest ultrasound revealed moderate right-sided pleural effusion and patient underwent thoracentesis with pulmonary on 03/22/2023 with removal of 1000 mL of fluid. He was continued on diuresis. He underwent cardiac catheterization on 03/26/2023 which demonstrated triple-vessel disease with 90% stenosis in the LAD, 90% ostial diagonal, 90% ostial OM1, 100% RCA. He was seen by cardiothoracic surgery who felt that he was too high risk to proceed with surgery at this time but should work for the next several months on increasing his endurance and taking all his medications. They will then reevaluate. Patient's fluid status continued to improve. He was determined stable for discharge home. Arrangements were made for him to be able to go to inpatient drug and alcohol rehab on 03/30/2019 fourth and intake at 1230. Follow-up: Dr. Moraes in 1 week, [facility] clinic with Ana Graham in 1 week, Dr. Saul once cleared by cardiology to proceed with open heart surgery. Patient was instructed to take daily weights and all medications as prescribed. He will follow a heart healthy diet with 2 g sodium and 2 L fluid restriction. Patient seen and examined at bedside. He is breathing better than before. No chest pain. No complaints. Doing well overall. Vital signs reviewed and stable. General: Nontoxic, no distress, appears at stated age Cardiovascular: S1S2 reg, no murmur, positive posterior tibial pulse bilateral, Lungs: CTA bilateral, no rhonchi, no rales, no accessory muscle use Abdominal: Soft, nontender to palpation, no guarding, no appreciable organomegaly Ext: No gross muscle atrophy, 1+ edema b/l lower extremities, no contractures Neuro: CN II-XI grossly intact, no focal neuro deficits Psych: Alert, oriented, appropriate affect A total of 35 minutes of time were spent preparing this complex discharge summary. Patient was discharged on 03/29/23. This dictation was prepared using [employer] voice recognition software. Though every attempt is made to correct errors during dictation some may still exist. Patient Condition at Discharge: Stable Plan - Discharge Summary Discharge Rx Participant: Yes New Discharge Prescriptions: New Aspirin 81 mg PO DAILY #30 tab Nitroglycerin Sl Tabs [Nitrostat] 0.4 mg SUBLINGUAL Q5M PRN #30 tab PRN Reason: Chest Pain Spironolactone [Aldactone] 25 mg PO DAILY #30 tab cloNIDine 0.1 MG/24HR PATCH [Catapres-TTS] 1 patch TRANSDERM Q7D #4 patch carvediloL [Coreg] 25 mg PO BID #60 tablet Furosemide [Lasix] 20 mg PO BID@0900,1600 #60 tab Atorvastatin [Lipitor] 80 mg PO HS #30 tab lisinopriL [Zestril] 20 mg PO BID #60 tab Continue Albuterol Nebulized [Ventolin Nebulized] 2.5 mg INHALATION RT-Q6H PRN PRN Reason: Dyspnea Albuterol Sulfate [Albuterol Sulfate Hfa] 1 - 2 puff PO RT-Q4H PRN PRN Reason: Dyspnea Discharge Medication List Albuterol Nebulized [Ventolin Nebulized] 2.5 mg INHALATION RT-Q6H PRN 03/22/23 [History] Albuterol Sulfate [Albuterol Sulfate Hfa] 1 - 2 puff PO RT-Q4H PRN 03/22/23 [History] Aspirin 81 mg PO DAILY #30 tab 03/28/23 [Rx] Atorvastatin [Lipitor] 80 mg PO HS #30 tab 03/28/23 [Rx] Furosemide [Lasix] 20 mg PO BID@0900,1600 #60 tab 03/28/23 [Rx] Nitroglycerin Sl Tabs [Nitrostat] 0.4 mg SUBLINGUAL Q5M PRN #30 tab 03/28/23 [Rx] Spironolactone [Aldactone] 25 mg PO DAILY #30 tab 03/28/23 [Rx] carvediloL [Coreg] 25 mg PO BID #60 tablet 03/28/23 [Rx] cloNIDine 0.1 MG/24HR PATCH [Catapres-TTS] 1 patch TRANSDERM Q7D #4 patch 03/28/23 [Rx] lisinopriL [Zestril] 20 mg PO BID #60 tab 03/28/23 [Rx] Follow up Appointment(s)/Referral(s): Jonas Moraes MD [STAFF PHYSICIAN] - 1 Week Smooth Saul MD [STAFF PHYSICIAN] - As Needed (May follow up once cardiology feels patient is ready for surgery, after repeat echo) None,Stated [Primary Care Provider] - 1-2 days [facility] [NON-STAFF] - 1 Week Patient Instructions/Handouts: Heart Failure (DC), Coronary Artery Disease (DC), Pulmonary Edema (DC), Heart Healthy Diet (DC) Activity/Diet/Wound Care/Special Instructions: Activity: As tolerated Diet: Heart Healthy 2 gram sodium, 2L fluid restriction Special Instructions: Weight your self daily, take all mediations as prescribed Abstain from drugs and alcohol. Discharge/Stand Alone Forms: AA Meetings [place], [facility], Who Do I Call?, Community Resources, Outpatient Counseling, Inp Substance Abuse Facilities Discharge Disposition: HOME WITH HOME HEALTH SERVICES
== END 2023-03-29 11:46 | disposition home health service (06) | DRG 280 ==
LOC: EC 00:21 → 3SCARD 06:24 → 2SICU 06:24 → 3SCARD 03-25 19:49
PROVIDERS: ADMIT Internal Medicine; ATTEND Internal Medicine
PROC: 0W993ZZ Drainage of Right Pleural Cavity, Percutaneous Approach (ICD-10-PCS; principal; 2023-03-22)
PROC: 4A023N7 Measurement of Cardiac Sampling and Pressure, Left Heart, Percutaneous Approach (ICD-10-PCS; 2023-03-26 12:30)
PROC: B2111ZZ Fluoroscopy of Multiple Coronary Arteries using Low Osmolar Contrast (ICD-10-PCS; 2023-03-26 12:30)
DX: I11.0 Hypertensive heart disease with heart failure (principal); I21.4 Non-ST elevation (NSTEMI) myocardial infarction; I50.23 Acute on chronic systolic (congestive) heart failure; J18.9 Pneumonia, unspecified organism; J96.01 Acute respiratory failure with hypoxia; E87.1 Hypo-osmolality and hyponatremia; J45.901 Unspecified asthma with (acute) exacerbation; F14.10 Cocaine abuse, uncomplicated; R00.0 Tachycardia, unspecified; F17.210 Nicotine dependence, cigarettes, uncomplicated; F41.9 Anxiety disorder, unspecified; I08.3 Combined rheumatic disorders of mitral, aortic and tricuspid valves; I27.20 Pulmonary hypertension, unspecified; I42.0 Dilated cardiomyopathy; I50.82 Biventricular heart failure; K76.1 Chronic passive congestion of liver; I25.10 Atherosclerotic heart disease of native coronary artery without angina pectoris; Z79.82 Long term (current) use of aspirin; Z79.899 Other long term (current) drug therapy; Z82.49 Family history of ischemic heart disease and other diseases of the circulatory system; Z83.3 Family history of diabetes mellitus; Z28.310 Unvaccinated for COVID-19; Z28.21 Immunization not carried out because of patient refusal; Z11.52 Encounter for screening for COVID-19
CPT/HCPCS: 36415; 36600; 71045; 71275; 74177; 76604; 76937; 80048; 80053; 80306; 82805; 82945; 83605; 83615; 83735; 83880; 84100; 84157; 84484; 85025; 85027; 85379; 85610; 85652; 85730; 86140; 87040; 87070; 87102; 87116; 87205; 87206; 87496; 87498; 87502; 87529; 87634; 87635; 87798; 88108; 88305; 89050; 93005; 93306; 93458; 94640; 94660; 94760; 96361; 96365; 96366; 96375; 99291